=== PATIENT | female | born 1955 | race Caucasian/White ===

== ENCOUNTER → 2018-06-30 14:11 | Outpatient (CLI) | payer MEDICARE, SELFPAY ==
[2018-06-30 15:02] LABS: Absolute Lymphocyte Count 1.92 X10^3/ul (0.83-4.51); Absolute Neutrophil Count 4.9 X10^3/uL (2.0-7.7); Basophil# 0.02 X10^3/uL; Basophil% 0.3 % (0-1); Eosinophil# 0.24 X10^3/uL; Eosinophils% 3.2 % (0-5); Hematocrit 46.4 % (37-47); Hemoglobin 14.7 g/dl (12.0-15.0); Lymphocyte # 1.92 X10^3/ul (4.0); Lymphocyte % 25.6 % (19-41); Mean Corp Hgb Conc 31.7 g/gl (32-36); Mean Corpuscular Hgb 30.7 pg (27.0-32.0); Mean Corpuscular Volume 96.9 fL (81-99); Mean Platelet Vol. 11.2 fl (6.2-12.0); Monocyte# 0.44 X10^3/uL; Monocyte% 5.9 % (0-10); Neutrophil # 4.89 X10^3/uL (2.7-7.7); POSITIVE COUNT NO; POSITIVE DIFFERENTIAL NO; POSITIVE MORPHOLOGY NO; Platelet Count 157 K/mm3 (150-450); RBC Distribution Width CV 14.7 % (11.6-14.6); RBC Distribution Width SD 51.8 fl (35.1-43.9); Red Blood Count 4.79 M/mm3 (4.2-5.4); White Blood Count 7.5 K/mm3 (4.4-11.0)
[2018-06-30 15:29] LABS: Thyroid Stim Hormone (TSH) 0.49 uIU/mL (0.358-3.74)
[2018-06-30 15:31] LABS: Lithium < 0.20 mmol/L (0.60-1.20)
== END ==
PROVIDERS: Family Provider Family Medicine; PCP Family Medicine
DX: R53.83 Other fatigue (principal); Z79.899 Other long term (current) drug therapy
CPT/HCPCS: 36415; 80178; 84443; 85025

== ENCOUNTER 2018-11-03 09:54 | Inpatient (IN) | payer MEDICARE, SELFPAY ==
[2018-11-03] VITALS (20 sets, daily range): BP systolic 112–205; BP diastolic 63–98; PULSE 62–102; RESP 14–20; TEMP 35.8–37.4; O2SAT 91–100; BMI 37.5; BMI 37.3; BMI 37.4
[2018-11-03] MEDS: Ondansetron 4 MG/2 ML Vial IV (10:59)
[2018-11-03 11:07] LABS: Basophil# 0.05 X10^3/uL; Basophil% 0.3 % (0-1); Eosinophil# 0.02 X10^3/uL; Eosinophils% 0.1 % (0-5); Lymphocyte % 6.1 % (19-41); Mean Corp Hgb Conc 34.1 g/gl (32-36); Mean Corpuscular Hgb 32.7 pg (27.0-32.0); Mean Corpuscular Volume 95.8 fL (81-99); Mean Platelet Vol. 11.7 fl (6.2-12.0); Monocyte# 0.41 X10^3/uL; Monocyte% 2.5 % (0-10); Neutrophil # 14.97 X10^3/uL (2.7-7.7); Neutrophil % 90.8 % (47-70); Platelet Count 177 K/mm3 (150-450); RBC Distribution Width CV 13.7 % (11.6-14.6); RBC Distribution Width SD 46.1 fl (35.1-43.9); Red Blood Count 4.28 M/mm3 (4.2-5.4); White Blood Count 16.5 K/mm3 (4.4-11.0)
[2018-11-03 11:10] LABS: POSITIVE COUNT NO; POSITIVE DIFFERENTIAL NO; POSITIVE MORPHOLOGY NO
[2018-11-03 11:22] LABS: AST(SGOT) 26 U/L (15-37); Alanine Aminotransfer ALT/SGPT 22 U/L (13-56); Alkaline Phosphatase 305 U/L (45-117); Anion Gap 13 (5-15); BUN 19 mg/dL (7-18); BUN/Creat Ratio 11.3 RATIO (10-20); Calcium,Total 10.6 mg/dL (8.5-10.1); Chloride 90 mmol/L (98-107); Creatinine, Serum 1.68 mg/dL (0.55-1.02); EST Glomerular Filtration Rate 33 mL/min (>60); Est Glom Filt Rate - Afr Amer 40 mL/min (>60); Estimated Creatinine Clearance 27.46 ml/min; Globulin 3.9 g/dL (2.2-4.2); Glucose 795 mg/dL (74-106); Lipase 49 U/L (73-393); Potassium 3.9 mmol/L (3.5-5.1); Protein, Total 7.9 g/dL (6.4-8.2); Sodium Level 132 mmol/L (136-145)
--- NOTE | 2018-11-03 11:23 | ED.RN ---
NOTIFIED DR RAWLS [id number]
--- NOTE | 2018-11-03 11:24 | CT_ITS ---
STUDY: CT ABDOMEN AND PELVIS WITHOUT CONTRAST REASON FOR EXAM: Female, 62 years old. Abdominal pain and vomiting. Patient has had an appendectomy. RADIATION DOSAGE (If Supplied By Facility): CTDIvol = ( 18.65 ) mGy, DLP = ( 992.44 ) mGycm TECHNIQUE: Transaxial images were obtained from the dome of the diaphragm to the symphysis pubis without oral contrast, and without intravenous contrast. Sagittal and coronal images were reconstructed. Individualized dose optimization techniques were used for this CT. COMPARISON: Prior comparison studies are not available for review at this time. FINDINGS: There is groundglass attenuation at the right lung base possibly representing atelectasis. The visualized portions of the heart are within normal limits. Normal liver. The gallbladder is very distended measuring up to 9.7 cm in greatest dimension. This suggests possible gallbladder hydrops. No calcified gallstones are visualized. There is mild splenomegaly. There is diffuse atrophy of the pancreas. Normal bilateral adrenal glands. Normal right kidney. Normal left kidney. Normal visualized stomach. There is no evidence for dilated bowel, ascites or pneumoperitoneum. The small bowel has a grossly normal appearance. Stool is visible throughout the colon with scattered diverticula. There are surgical clips in the region of the appendix consistent with a prior appendectomy. There is multifocal atherosclerotic calcification of the abdominal aorta, without a demonstrated aneurysm. Normal inferior vena cava. Normal retroperitoneum. Normal urinary bladder. There is absence of the uterus consistent with a prior hysterectomy. Normal abdominal wall. Normal osseous structures. CT/Abdomen/Pelvis without Cont IMPRESSION: 1. Very distended gallbladder suggesting possible gallbladder hydrops. 2. Mild splenomegaly. Electronically Signed: Zoey Dick MD at 12:32 EST , Service support ,
[2018-11-03] MEDS: 0.9% Normal Saline 1,000 ML 999 ML IV ×2 (11:42→13:16)
--- NOTE | 2018-11-03 13:06 | ED.DCSUM_ITS ---
- ER Visit Summary Date of Service: 11/03/18 Chief Complaint: Nausea and vomiting History of Present Illness: The patient is a 62 F who presents with nausea and vomiting. Started 2 days ago. She denies any abdominal pain with this. No dysuria, hematuria or diarrhea or constipation. She tried Phenergan at home but it did not help. She denies fevers. She tells me that she is a type I diabetic and the last time she took her blood sugar it was 150. Physical Examination: Vital signs reviewed. HEENT exam unremarkable. Heart is regular rate and rhythm without murmurs. Lungs are clear to auscultation. Abdomen is soft and nontender. Extremities reveal no edema. Skin exam normal. Neurologic exam normal. Test Results: White count 16.5. Sodium 132, chloride 90. Glucose 795. Total bilirubin 2.20. Ketones are small in the blood Emergency Department Course and Treatment: Patient was given saline as well as Zofran. I placed her on an insulin drip due to diabetic ketoacidosis. CAT scan of the abdomen and pelvis does reveal gallbladder hydrops. Patient was discussed with the hospitalist for the admission. Treatment Plan: [] Disposition: Discharge Impression: DKA, gallbladder hydrops Critical care time 35 minutes This note was generated with [employer] dictation software. It may contain incorrect words, spelling, and punctuation that were not noted in review of the chart prior to signing ED Disposition - Plan for ED Patient: Chief Complaint: Nausea/Vomiting Referrals: Jatinder Rey DO [Primary Care Provider] -
--- NOTE | 2018-11-03 13:08 | HP.PCM_ITS ---
Problem List (1) Hyperosmolar non-ketotic state in patient with type 2 diabetes mellitus Status: Acute (2) DM2 (diabetes mellitus, type 2) Status: Chronic (3) BMI 37.0-37.9, adult Status: Chronic (4) Hydrops of gallbladder Status: Chronic History of Present Illness Date of Admission: 11/03/18 Chief Complaint: Intractable nausea vomiting The patient is a 62 year old F with past medical history 7 for diabetes mellitus type 2 on insulin who presents with intractable nausea vomiting. Patient symptoms have been ongoing for the past 4 days. She elected to present to the emergency department due to progressive nature of her symptoms. In the ED patient was found to have markedly elevated blood glucose greater than 700 with positive urine urine ketones but with normal anion gap. An assessment of hyperosmolar nonketotic state in a patient with diabetes mellitus was made patient admitted to the stepdown unit for subsequent management Past Medical History Past Medical History (Chronic Problems): Chronic Problems DM2 (diabetes mellitus, type 2) (Chronic) BMI 37.0-37.9, adult (Chronic) Hydrops of gallbladder (Chronic) Allergies amoxicillin [From Augmentin] Adverse Reaction (Verified 11/03/18 09:54) Vomiting clavulanic acid [From Augmentin] Adverse Reaction (Verified 11/03/18 09:54) Vomiting Home Medications: Ambulatory Orders Medication Instructions Recorded Insulin Aspart [Novolog Flexpen 30 - 40 units SC PRN PRN 01/01/17 ([facility])] ALPRAZolam [Xanax] 0.25 mg PO Q4H PRN PRN 11/03/18 Insulin Degludec [Tresiba 60 units SC BID 11/03/18 Flextouch U-200] [place] Carbonate [Eskalith Cr] 450 mg PO BID 11/03/18 proMETHazine tablet [Phenergan 25 mg PO Q6H PRN PRN 11/03/18 tablet] Smoking Status: Former smoker - *Family History Maternal History Items: Unknown Paternal History Items: - - Father of alcoholism Review of Systems Constitutional: Reports: Anorexia HEENT: Denies: Head Aches, Sinus Congestion, Sinus Drainage Cardiovascular: Denies: Chest Pain, Orthopnea, Palpitations, Paroxysmal Noc. Dyspnea Respiratory: Denies: Cough, Shortness of breath at rest, Shortness of breath upon exertion, Sputum production Gastrointestinal: Reports: Nausea, Vomiting Genitourinary: Denies: Dysuria, Frequency, Hematuria, Urgency Musculoskeletal: Denies: Joint Pain, Joint Tenderness Skin: Denies: Rash Neurological: Denies: Focal weakness, Numbness, Tingling Psychiatric: Denies: Homicidal Ideations, Suicidal Ideations Hematologic/ Lymphatic: Denies: Easy Bruising, Easy Bleeding VTE Information - Inpt Only VTE Present on Admission: No VTE Mechan Device Prophylaxis: Knee High MERCEDES Hose VTE Pharm Prophylaxis ordered?: Yes Patient Problems: Active and Suspected Problems Hyperosmolar non-ketotic state in patient with type 2 diabetes mellitus (Acute) Objective: GENERAL: cooperative HEENT: Atraumatic; moist oral mucosa EYES; Anicteric, Normal Conjunctiva NECK; supple, normal thyroid, no distended JVD. RESPIRATORY: Diminished to auscultation bilaterally, CARDIOVASCULAR: Regular S1 S2, no audible murmurs GI: soft, non-tender, normoactive bowel sounds, : No Renal angle tenderness; EXTREMITIES: No edema, no clubbing, no cyanosis. MUSCULOSKELETAL: No Joint Tenderness; no muscle waisting NEURO: Awake; no lateralizing signs. SKIN: No Rash PSYCH; Normal affect - Physical Exam Vital Signs Temp Pulse Resp BP Pulse Ox 96.4 F L 84 16 142/79 H 97 11/03/18 09:55 11/03/18 12:52 11/03/18 12:52 11/03/18 12:52 11/03/18 12:52 Oxygen Delivery Method Room Air Weight: 93 kg Body Mass Index (BMI) 37.5 Finger Stick Blood Glucose 288 Laboratory Tests Past 24 Hrs 11/03/18 11/03/18 11/03/18 10:50 10:50 11:34 WBC 16.5 H RBC 4.28 Hgb 14.0 Hct 41.0 MCV 95.8 MCH 32.7 H MCHC 34.1 RDW 13.7 RDW Differential 46.1 H Plt Count 177 MPV 11.7 Immature Gran % (Auto) 0.200 Neut % (Auto) 90.8 H Lymph % (Auto) 6.1 L [place] % (Auto) 2.5 Eos % (Auto) 0.1 Baso % (Auto) 0.3 Absolute Neuts (auto) 15.0 H Absolute Lymphs (auto) 1.00 Total Counted Not Reportable Sodium 132 L Potassium 3.9 Chloride 90 L Carbon Dioxide 29.0 Anion Gap 13 BUN 19 H Creatinine 1.68 H Estim Creat Clear Calc 27.46 Est GFR (MDRD) Af Amer 40 L Est GFR (MDRD) Non-Af 33 L BUN/Creatinine Ratio 11.3 Glucose 795 H* Calcium 10.6 H Total Bilirubin 2.20 H AST 26 ALT 22 Alkaline Phosphatase 305 H Total Protein 7.9 Albumin 4.0 Globulin 3.9 Albumin/Globulin Ratio 1.0 Lipase 49 L Acetone Level SMALL H Assessment/Plan All Active Problems Hyperosmolar non-ketotic state in patient with type 2 diabetes mellitus (Acute) Patient is a 62-year-old lady with history of diabetes mellitus type 2 1. Hyperosmolar ketotic state in a patient with diabetes mellitus type 2 she has been admitted to the stepdown unit being managed with aggressive IV fluid resuscitation insulin drip and correction of electrolyte 2. Diabetes mellitus type 2 uncontrolled presented with hyperosmolar nonketotic state 3. Acute kidney injury secondary to above on IV fluids with monitoring of electrolyte 4. Leukocytosis patient does not have any evidence of infection at this point 5. Very distended gallbladder suggesting possible gallbladder hydrops. Plan is to obtain surgical consultation Advance planning; did discuss with the patient regarding her advanced directives as well as CODE STATUS. Did explain the various modalities involved ( FULL CODE, DNR CCA, DNR CCA with no intubation, and DNR CC ) patient elected to remain full code. Order was placed. Time spent on discussion 17 minutes. Clinical Impression(s) from Imaging Studies Abdomen/Pelvis CT 11/03/18 11:24 IMPRESSION: 1. Very distended gallbladder suggesting possible gallbladder hydrops. 2. Mild splenomegaly. Electronically Signed: Zoey Dick MD at 12:32 EST , Service support , Code Visit Inpatient E&M: 61279 Init Hosp L3 Procedures: 62363 Advncd Care Plan 30 Min
[2018-11-03 13:31] LABS: Bedside Glucose > 500 mg/dL (70-110)
[2018-11-03 14:31] LABS: Bedside Glucose > 500 mg/dL (70-110)
[2018-11-03 14:53] LABS: AST(SGOT) 27 U/L (15-37); Alanine Aminotransfer ALT/SGPT 22 U/L (13-56); Alkaline Phosphatase 304 U/L (45-117); Bilirubin, Direct 0.83 mg/dL (0.00-0.30); Magnesium 2.3 mg/dL (1.6-2.6)
[2018-11-03 15:32] LABS: Anion Gap 12 (5-15); BUN 20 mg/dL (7-18); BUN/Creat Ratio 12.9 RATIO (10-20); Calcium,Total 9.9 mg/dL (8.5-10.1); Chloride 102 mmol/L (98-107); Creatinine, Serum 1.55 mg/dL (0.55-1.02); EST Glomerular Filtration Rate 36 mL/min (>60); Est Glom Filt Rate - Afr Amer 43 mL/min (>60); Estimated Creatinine Clearance 29.76 ml/min; Glucose 600 mg/dL (74-106); Potassium 3.5 mmol/L (3.5-5.1); Sodium Level 139 mmol/L (136-145)
[2018-11-03] MEDS: 0.9% Normal Saline 1,000 ML 500 ML IV (15:44)
[2018-11-03] MEDS: 0.9% Normal Saline 1,000 ML 250 ML IV ×2 (15:49→21:23)
--- NOTE | 2018-11-03 16:22 | PCM.CONS.GEN ---
Reason for Consult Date of Consultation: 11/03/18 History of Present Illness: The patient is a 62 year old F presented due to nausea and vomiting times 2 days and some right upper quadrant pain. In the ER patient had a CT abdomen pelvis did show a distended gallbladder. Her white blood count 16.5 along with a blood sugar of 795, total bili of 2.2 and elevated alk phos. Patient states last time she had any solid food was a couple days ago due to the nausea and vomiting. Patient is currently on insulin drip and her blood sugar as of 3 PM was 600, she is also getting some potassium in her and her fluids as well. Past Medical History Past Medical History (Chronic Problems): Chronic Problems DM2 (diabetes mellitus, type 2) (Chronic) BMI 37.0-37.9, adult (Chronic) Hydrops of gallbladder (Chronic) Allergies amoxicillin [From Augmentin] Adverse Reaction (Verified 11/03/18 09:54) Vomiting clavulanic acid [From Augmentin] Adverse Reaction (Verified 11/03/18 09:54) Vomiting Home Medications: Ambulatory Orders Medication Instructions Recorded Insulin Aspart [Novolog Flexpen 24 units SC TIDCM 01/01/17 ([facility])] ALPRAZolam [Xanax] 0.25 mg PO Q6H PRN PRN 11/03/18 Albuterol Inhaler [Ventolin Hfa] 1 puff INHALATION Q4H PRN 11/03/18 Furosemide [Lasix] 40 mg PO DAILY PRN 11/03/18 Insulin Degludec [Tresiba 60 units SC BID 11/03/18 Flextouch U-200] Levothyroxine [Synthroid] 100 mcg PO DAILY 11/03/18 [place] Carbonate [Eskalith Cr] 450 mg PO BID 11/03/18 Simvastatin [Zocor] 40 mg PO QHS 11/03/18 Tizanidine HCl [Zanaflex] 4 mg PO TID PRN 11/03/18 buPROPion XL [Wellbutrin Xl] 300 mg PO DAILY 11/03/18 proMETHazine tablet [Phenergan 25 mg PO Q6H PRN PRN 11/03/18 tablet] Surgical History: hysterectomy Psychiatric History: Bipolar 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 Smoking Status: Former smoker Tobacco Use: Cigarettes - *Family History Maternal History Items: Unknown Paternal History Items: - - Father of alcoholism Review of Systems Constitutional: Denies: Chills, Fever HEENT: Denies: Difficulty Swallowing Cardiovascular: Denies: Chest Pain Gastrointestinal: Reports: Abdominal Pain, Nausea, Vomiting Skin: Denies: Rash Neurological: Denies: Confusion Psychiatric: Reports: Depression - Patient has a history of bipolar which is controlled with lithium Patient Problems: Active and Suspected Problems Hyperosmolar non-ketotic state in patient with type 2 diabetes mellitus (Acute) - Physical Exam General: Alert, Oriented x3, Cooperative Cardiovascular: Regular rate Abdomen: Soft, Non-Distended, Obese, Tender - Right upper quadrant and epigastric, no peritoneal signs Extremities: No clubbing, No cyanosis, No edema Neurological: Cranial nerves II-XII grossly intact Psych/Mental Status: Normal Affect Vital Signs Temp Pulse Resp BP Pulse Ox 97.9 F 100 20 H 162/72 H 92 11/03/18 14:58 11/03/18 14:58 11/03/18 14:58 11/03/18 14:58 11/03/18 14:58 Oxygen Delivery Method Room Air Weight: 204 lb 5.896 oz Body Mass Index (BMI) 37.3 Finger Stick Blood Glucose 288 Laboratory Tests Past 24 Hrs 11/03/18 11/03/18 11/03/18 10:50 10:50 10:50 WBC 16.5 H RBC 4.28 Hgb 14.0 Hct 41.0 MCV 95.8 MCH 32.7 H MCHC 34.1 RDW 13.7 RDW Differential 46.1 H Plt Count 177 MPV 11.7 Immature Gran % (Auto) 0.200 Neut % (Auto) 90.8 H Lymph % (Auto) 6.1 L [place] % (Auto) 2.5 Eos % (Auto) 0.1 Baso % (Auto) 0.3 Absolute Neuts (auto) 15.0 H Absolute Lymphs (auto) 1.00 Total Counted Not Reportable Sodium 132 L Potassium 3.9 Chloride 90 L Carbon Dioxide 29.0 Anion Gap 13 BUN 19 H Creatinine 1.68 H Estim Creat Clear Calc 27.46 Est GFR (MDRD) Af Amer 40 L Est GFR (MDRD) Non-Af 33 L BUN/Creatinine Ratio 11.3 Glucose 795 H* Hemoglobin A1c Calcium 10.6 H Magnesium Total Bilirubin 2.20 H Cancelled Direct Bilirubin Cancelled AST 26 Cancelled ALT 22 Cancelled Alkaline Phosphatase 305 H Cancelled Troponin I Total Protein 7.9 Cancelled Albumin 4.0 Cancelled Globulin 3.9 Cancelled Albumin/Globulin Ratio 1.0 Lipase 49 L Acetone Level 11/03/18 11/03/18 11/03/18 10:50 10:55 11:34 WBC RBC Hgb Hct MCV MCH MCHC RDW RDW Differential Plt Count MPV Immature Gran % (Auto) Neut % (Auto) Lymph % (Auto) [place] % (Auto) Eos % (Auto) Baso % (Auto) Absolute Neuts (auto) Absolute Lymphs (auto) Total Counted Sodium Potassium Chloride Carbon Dioxide Anion Gap BUN Creatinine Estim Creat Clear Calc Est GFR (MDRD) Af Amer Est GFR (MDRD) Non-Af BUN/Creatinine Ratio Glucose Hemoglobin A1c 9.0 H Calcium Magnesium 2.3 Total Bilirubin 2.20 H Direct Bilirubin 0.83 H AST 27 ALT 22 Alkaline Phosphatase 304 H Troponin I Total Protein 8.0 Albumin 4.0 Globulin 4.0 Albumin/Globulin Ratio Lipase Acetone Level SMALL H 11/03/18 11/03/18 15:00 15:35 WBC RBC Hgb Hct MCV MCH MCHC RDW RDW Differential Plt Count MPV Immature Gran % (Auto) Neut % (Auto) Lymph % (Auto) [place] % (Auto) Eos % (Auto) Baso % (Auto) Absolute Neuts (auto) Absolute Lymphs (auto) Total Counted Sodium 139 Potassium 3.5 Chloride 102 Carbon Dioxide 25.0 Anion Gap 12 BUN 20 H Creatinine 1.55 H Estim Creat Clear Calc 29.76 Est GFR (MDRD) Af Amer 43 L Est GFR (MDRD) Non-Af 36 L BUN/Creatinine Ratio 12.9 Glucose 600 H* Hemoglobin A1c Calcium 9.9 Magnesium Total Bilirubin Direct Bilirubin AST ALT Alkaline Phosphatase Troponin I 0.018 Total Protein Albumin Globulin Albumin/Globulin Ratio Lipase Acetone Level POC Glucose 11/03/18 11/03/18 14:10 13:15 POC Glucose > 500 H* > 500 H* Assessment/Plan All Active Problems Hyperosmolar non-ketotic state in patient with type 2 diabetes mellitus (Acute) 62-year-old female with a distended gallbladder on CT, white blood cell count 16.5, blood sugars 600 currently (795), right upper quadrant pain, elevated total bili and alk phos 1. Discussed procedure laparoscopic cholecystectomy with cholangiograms, possible open along with the risk but not limited to bleeding, infection at incisions/abscess, injury to another organ (small bowel, bile ducts, etc.) may require transfer to tertiary care center, bile leak/retained gallstones may require an ERCP, partial cholecystectomy if there is too much inflammation to safely complete, hernia at incision sites, and anesthesia. Patient no further questions at this time. Patient's blood sugars may likely be due to infectious process due to the gallbladder as she does have nausea vomiting and right upper quadrant pain and also an elevated total bili and alk phos. Will start IV Cipro and Flagyl. 2. continue insulin gtt per primary Asha Shields M.D. Pager: [phone] [facility] [address] [place] [address], [address] [place] [id number] Office: [phone]
--- NOTE | 2018-11-03 16:27 | CON.PCM_ITS ---
Reason for Consult Date of Consultation: 11/03/18 History of Present Illness: The patient is a 62 year old F presented due to nausea and vomiting times 2 days and some right upper quadrant pain. In the ER patient had a CT abdomen pelvis did show a distended gallbladder. Her white blood count 16.5 along with a blood sugar of 795, total bili of 2.2 and elevated alk phos. Patient states last time she had any solid food was a couple days ago due to the nausea and vomiting. Patient is currently on insulin drip and her blood sugar as of 3 PM was 600, she is also getting some potassium in her and her fluids as well. Past Medical History Past Medical History (Chronic Problems): Chronic Problems DM2 (diabetes mellitus, type 2) (Chronic) BMI 37.0-37.9, adult (Chronic) Hydrops of gallbladder (Chronic) Allergies amoxicillin [From Augmentin] Adverse Reaction (Verified 11/03/18 09:54) Vomiting clavulanic acid [From Augmentin] Adverse Reaction (Verified 11/03/18 09:54) Vomiting Home Medications: Ambulatory Orders Medication Instructions Recorded Insulin Aspart [Novolog Flexpen 24 units SC TIDCM 01/01/17 ([facility])] ALPRAZolam [Xanax] 0.25 mg PO Q6H PRN PRN 11/03/18 Albuterol Inhaler [Ventolin Hfa] 1 puff INHALATION Q4H PRN 11/03/18 Furosemide [Lasix] 40 mg PO DAILY PRN 11/03/18 Insulin Degludec [Tresiba 60 units SC BID 11/03/18 Flextouch U-200] Levothyroxine [Synthroid] 100 mcg PO DAILY 11/03/18 [place] Carbonate [Eskalith Cr] 450 mg PO BID 11/03/18 Simvastatin [Zocor] 40 mg PO QHS 11/03/18 Tizanidine HCl [Zanaflex] 4 mg PO TID PRN 11/03/18 buPROPion XL [Wellbutrin Xl] 300 mg PO DAILY 11/03/18 proMETHazine tablet [Phenergan 25 mg PO Q6H PRN PRN 11/03/18 tablet] Surgical History: hysterectomy Psychiatric History: Bipolar 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 Smoking Status: Former smoker Tobacco Use: Cigarettes - *Family History Maternal History Items: Unknown Paternal History Items: - - Father of alcoholism Review of Systems Constitutional: Denies: Chills, Fever HEENT: Denies: Difficulty Swallowing Cardiovascular: Denies: Chest Pain Gastrointestinal: Reports: Abdominal Pain, Nausea, Vomiting Skin: Denies: Rash Neurological: Denies: Confusion Psychiatric: Reports: Depression - Patient has a history of bipolar which is controlled with lithium Patient Problems: Active and Suspected Problems Hyperosmolar non-ketotic state in patient with type 2 diabetes mellitus (Acute) - Physical Exam General: Alert, Oriented x3, Cooperative Cardiovascular: Regular rate Abdomen: Soft, Non-Distended, Obese, Tender - Right upper quadrant and epigastric, no peritoneal signs Extremities: No clubbing, No cyanosis, No edema Neurological: Cranial nerves II-XII grossly intact Psych/Mental Status: Normal Affect Vital Signs Temp Pulse Resp BP Pulse Ox 97.9 F 100 20 H 162/72 H 92 11/03/18 14:58 11/03/18 14:58 11/03/18 14:58 11/03/18 14:58 11/03/18 14:58 Oxygen Delivery Method Room Air Weight: 204 lb 5.896 oz Body Mass Index (BMI) 37.3 Finger Stick Blood Glucose 288 Laboratory Tests Past 24 Hrs 11/03/18 11/03/18 11/03/18 10:50 10:50 10:50 WBC 16.5 H RBC 4.28 Hgb 14.0 Hct 41.0 MCV 95.8 MCH 32.7 H MCHC 34.1 RDW 13.7 RDW Differential 46.1 H Plt Count 177 MPV 11.7 Immature Gran % (Auto) 0.200 Neut % (Auto) 90.8 H Lymph % (Auto) 6.1 L [place] % (Auto) 2.5 Eos % (Auto) 0.1 Baso % (Auto) 0.3 Absolute Neuts (auto) 15.0 H Absolute Lymphs (auto) 1.00 Total Counted Not Reportable Sodium 132 L Potassium 3.9 Chloride 90 L Carbon Dioxide 29.0 Anion Gap 13 BUN 19 H Creatinine 1.68 H Estim Creat Clear Calc 27.46 Est GFR (MDRD) Af Amer 40 L Est GFR (MDRD) Non-Af 33 L BUN/Creatinine Ratio 11.3 Glucose 795 H* Hemoglobin A1c Calcium 10.6 H Magnesium Total Bilirubin 2.20 H Cancelled Direct Bilirubin Cancelled AST 26 Cancelled ALT 22 Cancelled Alkaline Phosphatase 305 H Cancelled Troponin I Total Protein 7.9 Cancelled Albumin 4.0 Cancelled Globulin 3.9 Cancelled Albumin/Globulin Ratio 1.0 Lipase 49 L Acetone Level 11/03/18 11/03/18 11/03/18 10:50 10:55 11:34 WBC RBC Hgb Hct MCV MCH MCHC RDW RDW Differential Plt Count MPV Immature Gran % (Auto) Neut % (Auto) Lymph % (Auto) [place] % (Auto) Eos % (Auto) Baso % (Auto) Absolute Neuts (auto) Absolute Lymphs (auto) Total Counted Sodium Potassium Chloride Carbon Dioxide Anion Gap BUN Creatinine Estim Creat Clear Calc Est GFR (MDRD) Af Amer Est GFR (MDRD) Non-Af BUN/Creatinine Ratio Glucose Hemoglobin A1c 9.0 H Calcium Magnesium 2.3 Total Bilirubin 2.20 H Direct Bilirubin 0.83 H AST 27 ALT 22 Alkaline Phosphatase 304 H Troponin I Total Protein 8.0 Albumin 4.0 Globulin 4.0 Albumin/Globulin Ratio Lipase Acetone Level SMALL H 11/03/18 11/03/18 15:00 15:35 WBC RBC Hgb Hct MCV MCH MCHC RDW RDW Differential Plt Count MPV Immature Gran % (Auto) Neut % (Auto) Lymph % (Auto) [place] % (Auto) Eos % (Auto) Baso % (Auto) Absolute Neuts (auto) Absolute Lymphs (auto) Total Counted Sodium 139 Potassium 3.5 Chloride 102 Carbon Dioxide 25.0 Anion Gap 12 BUN 20 H Creatinine 1.55 H Estim Creat Clear Calc 29.76 Est GFR (MDRD) Af Amer 43 L Est GFR (MDRD) Non-Af 36 L BUN/Creatinine Ratio 12.9 Glucose 600 H* Hemoglobin A1c Calcium 9.9 Magnesium Total Bilirubin Direct Bilirubin AST ALT Alkaline Phosphatase Troponin I 0.018 Total Protein Albumin Globulin Albumin/Globulin Ratio Lipase Acetone Level POC Glucose 11/03/18 11/03/18 14:10 13:15 POC Glucose > 500 H* > 500 H* Assessment/Plan All Active Problems Hyperosmolar non-ketotic state in patient with type 2 diabetes mellitus (Acute) 62-year-old female with a distended gallbladder on CT, white blood cell count 16.5, blood sugars 600 currently (795), right upper quadrant pain, elevated total bili and alk phos 1. Discussed procedure laparoscopic cholecystectomy with cholangiograms, possible open along with the risk but not limited to bleeding, infection at incisions/abscess, injury to another organ (small bowel, bile ducts, etc.) may require transfer to tertiary care center, bile leak/retained gallstones may require an ERCP, partial cholecystectomy if there is too much inflammation to safely complete, hernia at incision sites, and anesthesia. Patient no further questions at this time. Patient's blood sugars may likely be due to infectious process due to the gallbladder as she does have nausea vomiting and right upper quadrant pain and also an elevated total bili and alk phos. Will start IV Cipro and Flagyl. 2. continue insulin gtt per primary Asha Shields M.D. Pager: [phone] [facility] [address] [place] [address], [address] [place] [id number] Office: [phone]
--- NOTE | 2018-11-03 16:35 | GALL_PTH ---
PATIENT: JUANCARLOS JOHN LOC: [facility] U#:[id number] AGE/SX: 63/F ROOM: [facility] RE11/03/[address]: Dr. Juanito Phillip MD : [id number] BED: 1 DIS: 11/07/2018 SPEC #: [id number] RECD: 11/04/18 15:05 STATUS: DENISHA REQ #: [id number] OLINDA: 11/03/18 16:[address]: Asha Shields DEPT: SURGICAL PATHOLOGY RECD BY: Michelet Minor ENTERED: 11/05/18 10:24 SP TYPE: GALLBLADDE OTHR DR: DO Dr. Juanito Marin MD Dr. Tamera Robotham, MD Tissues: Gallbladder, NOS Procedures: Surgery Specimen Level III Comments: @ Ordering doctor for SUIII edited from to @ by RGOOD at 11/05/18 1507 @ Submitting doctor edited from to @ by RGOOD at 11/05/18 1507 HEADER OPERATION: Laparoscopic cholecystectomy with IOC PRE-OP DIAGNOSIS: Hydrops of gallbladder TISSUE SUBMITTED: Gallbladder MICROSCOPIC DIAGNOSIS Gallbladder: Acute and chronic cholecystitis and focal cholesterolosis. No stones are identified in the container or in the gallbladder. SJ:stacia 11/06/18 MICROSCOPIC DESCRIPTION Slides are reviewed. GROSS DESCRIPTION Received is one container labeled with the patient's name and designated gallbladder. The specimen consists of a gallbladder measuring 9.2 x 5.5 x 2 cm. The external surface is smooth and glistening. Focally, it is granular, hemorrhagic and contains cautery artifact. The lumen of the gallbladder contains small amount of greenish mucoid bile. No calculi are present in the specimen container or the lumen of the gallbladder. The mucosa is bile-stained and without any mass lesions. The gallbladder wall averages 0.2 cm in thickness and is free of mass lesions. Complex Manager sections of the gallbladder and the cystic duct are submitted in one cassette. / AM:stacia 11/05/18 TC:4 CPT: 89500
[2018-11-03 16:46] LABS: Bedside Glucose 450 mg/dL (70-110)
[2018-11-03 16:46] LABS: Bedside Glucose > 500 mg/dL (70-110)
--- NOTE | 2018-11-03 16:51 | RAD_ITS ---
CLINICAL HISTORY: Female, 62 years old. Gallbladder disease PROCEDURE: CHOLANGIOGRAM - intraoperative CONSENT: SEDATION: FLUOROSCOPY TIME (if supplied): ( ) minutes/seconds Placement of the catheter and the procedure were performed by: Surgeon Fluoroscopy was provided by soil technologist, who was present in the room time of the procedure. TECHNIQUE: (4 fluoroscopic guided images were submitted during intraoperative cholangiogram. FINDINGS: Intraoperative cholangiogram was performed. For more complete information recommend correlation with surgical procedure nodes RAD/Cholangiogram/ O R,Initial IMPRESSION: Fluoroscopic guided intraoperative cholangiogram Electronically Signed: Simone Foss MD at 23:56 EST , Service support ,
[2018-11-03 17:19] LABS: Bacteria 0 SEEN /hpf (None Seen); Mucous, Urine 0 SEEN /hpf (<or=2+); Red Blood Cells-Urine 0 SEEN /hpf (0-5)
[2018-11-03 17:24] LABS: Color, Urine Yellow (Yellow); Glucose, Dipstick 1000 mg/dl (Normal); Ketone-Dipstick 15 mg/dl (Negative); Leukocyte Esterase-Dipstick Negative /ul (Negative); Nitrite-Dipstick Negative (Negative); Occult Blood-Urine 10 /ul (Negative); Protein-Dipstick Negative (Negative); Urine Bilirubin Dipstick Negative (Negative); Urine Clarity Sl. Cloudy (Clear); Urine Urobilinogen 1 mg/dl (Normal); Urine pH 6.5 (5.0 - 8.0)
--- NOTE | 2018-11-03 17:32 | EKG12_ITS ---
Test Reason : Blood Pressure : / mmHG Vent. Rate : 094 BPM Atrial Rate : 094 BPM P-R Int : 148 ms QRS Dur : 076 ms QT Int : 430 ms P-R-T Axes : 031 036 061 degrees QTc Int : 537 ms Normal sinus rhythm Nonspecific T wave abnormality Prolonged QT Abnormal ECG Confirmed by HELDER BOGGS, RITESH ([id number]), news videotape editor SUMAN GILILLAND ([id number]) on 11/07/2018 2:27:56 PM Referred By: Juanito Phillip Confirmed By:RITESH PENDLETON MD
[2018-11-03 17:33] LABS: Squamous Epithelial Cells - UA 0-5 SEEN /hpf (5-10); White Blood Cells 0-5 SEEN /hpf (0-5)
[2018-11-03] MEDS: Ciprofloxacin 400 MG/200 ML BAG 200 MG IV ×2 (17:52→22:38)
[2018-11-03] MEDS: Bupivacaine Mpf 0.5% 30 ML VIAL (19:25)
--- NOTE | 2018-11-03 19:29 | PCM.OPRPT ---
Report of Operation Date of Procedure: 11/03/18 Pre-Operative Diagnosis: Hydrops of the gallbladder Post-Operative Diagnosis: Acute cholecystitis, hydrops of the gallbladder Surgery/Procedure Performed:: Laparoscopic cholecystectomy with cholangiograms president and ceo: Roslyn Purvis Type of Anesthesia:: General/Supplemental Anesthesiologist: Dharmesh Perry Special Medications: Cipro 400 mg IV x1, Flagyl 500 mg IV x1 Specimen's removed: Gallbladder Estimated Blood Loss (mL): 40 cc Fluids Replaced: 500 cc Description of Procedure: Indications this is a 62 year-old female who developed abdominal pain/nausea/vomiting and on workup was found to have a very distended gallbladder, right upper quadrant pain, leukocytosis of 16.5, total bilirubin of 2.2 and elevated alk phos. Laparoscopic cholecystectomy with cholangiograms was elected. Description procedure: The patient was placed on operating table in supine position. General Anesthesia was induced. A timeout was completed verifying correct patient, procedure, site, position, social, and special equipment prior to beginning procedure. An orogastric tube was placed. The abdomen was prepped and draped in usual sterile fashion. An incision was made in the natural skin line above the umbilicus. The fascia was elevated and incised. The peritoneum was elevated and incised. Entry into the peritoneum was confirmed visually and no bowel was noted in the vicinity of the incision. Steele trocar was placed. The abdomen was insufflated with carbon dioxide to a pressure of 12-15 mmHg. Patient tolerated insufflation well. The laparoscope was then inserted and abdomen inspected. No injuries from initial trocar placement were noted. Additional trochars were then inserted in the following locations 5 mm trocar in the epigastrium and 2 more 5 mm trochars along the right costal margin. The abdomen was inspected no abnormalities were found. The table is placed in reverse Trendelenburg position with the right side up. The gallbladder is noted to be very distended, needle decompression was done to allow grasping of the dome of the gallbladder. The adhesions between the gallbladder and omentum were lysed sharply. The dome of the gallbladder was grasped with atraumatic grasper passed through the lateral port and retracted over the dome of the liver. Infundibulum was then grasped with atraumatic grasper through the midclavicular port and retracted to the right lower quadrant. This maneuver exposed Calot's triangle. The peritoneum overlying the gallbladder infundibulum was then incised and cystic duct and artery identified and circumferentially dissected. Best catheter was used for cholangiograms. Cholangiograms showed good filling into the duodenum as well as good filling of the right left bile ducts. The cystic duct and artery were then doubly clipped and divided close to the gallbladder. The gallbladder then dissected from its peritoneal attachments by electrocautery. Hemostasis was checked and the gallbladder and contained stones were removed using the endoscopic retrieval bag through the umbilical port. The gallbladder is passed off table as specimen. The gallbladder fossa was copiously irrigated with saline and hemostasis obtained. There is no evidence of bleeding from the gallbladder fossa or cystic artery leakage of bile from the cystic duct stump. Secondary trochars removed under direct vision. No bleeding was noted the trocar sites. The laparoscope was withdrawn and umbilical trocar removed. The abdomen was allowed to collapse. The fascia of the 12 mm trocar was closed with a [id number] 0 Vicryl suture. The skin was closed with sutures of 4-0 Monocryl and Steri-Strips. The orogastric tube was removed and the patient was extubated. The patient tolerated procedure well and was taken to the postanesthesia care unit in stable condition. - Complications none
--- NOTE | 2018-11-03 19:33 | OP.PCM_ITS ---
Report of Operation Date of Procedure: 11/03/18 Pre-Operative Diagnosis: Hydrops of the gallbladder Post-Operative Diagnosis: Acute cholecystitis, hydrops of the gallbladder Surgery/Procedure Performed:: Laparoscopic cholecystectomy with cholangiograms trash hauler: Roslyn Purvis Type of Anesthesia:: General/Supplemental Anesthesiologist: Dharmesh Perry Special Medications: Cipro 400 mg IV x1, Flagyl 500 mg IV x1 Specimen's removed: Gallbladder Estimated Blood Loss (mL): 40 cc Fluids Replaced: 500 cc Description of Procedure: Indications this is a 62 year-old female who developed abdominal pain/nausea/vomiting and on workup was found to have a very distended gallb ladder, right upper quadrant pain, leukocytosis of 16.5, total bilirubin of 2.2 and elevated alk phos. Laparoscopic cholecystectomy with cholangiograms was elected. Description procedure: The patient was placed on operating table in supine position. General Anesthesia was induced. A timeout was completed verifying correct patient, procedure, site, position, social, and special equipment prior to beginning procedure. An orogastric tube was placed. The abdomen was prepped and draped in usual sterile fashion. An incision was made in the natural skin line above the umbilicus. The fascia was elevated and incised. The peritoneum was elevated and incised. Entry into the peritoneum was confirmed visually and no bowel was noted in the vicinity of the incision. Steele trocar was placed. The abdomen was insufflated with carbon dioxide to a pressure of 12-15 mmHg. Patient tolerated insufflation well. The laparoscope was then inserted and abdomen inspected. No injuries from initial trocar placement were noted. Additional trochars were then inserted in the following locations 5 mm trocar in the epigastrium and 2 more 5 mm trochars along the right costal margin. The abdomen was inspected no abnormalities were found. The table is placed in reverse Trendelenburg position with the right side up. The gallbladder is noted to be very distended, needle decompression was done to allow grasping of the dome of the gallbladder. The adhesions between the gallbladder and omentum were lysed sharply. The dome of the gallbladder was grasped with atraumatic grasper passed through the lateral port and retracted over the dome of the liver. Infundibulum was then grasped with atraumatic grasper through the midclavicular port and retracted to the right lower quadrant. This maneuver exposed Calot's triangle. The peritoneum overlying the gallbladder infundibulum was then incised and cystic duct and artery identified and circumferentially dissected. Best catheter was used for cholangiograms. Cholangiograms showed good filling into the duodenum as well as good filling of the right left bile ducts. The cystic duct and artery were then doubly clipped and divided close to the gallbladder. The gallbladder then dissected from its peritoneal attachments by electrocautery. Hemostasis was checked and the gallbladder and contained stones were removed using the endoscopic retrieval bag through the umbilical port. The gallbladder is passed off table as specimen. The gallbladder fossa was copiously irrigated with saline and hemostasis obtained. There is no evidence of bleeding from the gallbladder fossa or cystic artery leakage of bile from the cystic duct stump. Secondary trochars removed under direct vision. No bleeding was noted the trocar sites. The laparoscope was withdrawn and umbilical trocar removed. The abdomen was allowed to collapse. The fascia of the 12 mm trocar was closed with a [id number] 0 Vicryl suture. The skin was closed with sutures of 4-0 Monocryl and Steri-Strips. The orogastric tube was removed and the patient was extubated. The patient tolerated procedure well and was taken to the postanesthesia care unit in stable condition. - Complications none
[2018-11-03 19:51] LABS: Bedside Glucose 368 mg/dL (70-110)
[2018-11-03 20:06] LABS: Bedside Glucose 337 mg/dL (70-110)
[2018-11-03 20:27] LABS: Anion Gap 8 (5-15); BUN 19 mg/dL (7-18); BUN/Creat Ratio 13.7 RATIO (10-20); Calcium,Total 9.1 mg/dL (8.5-10.1); Chloride 108 mmol/L (98-107); Creatinine, Serum 1.39 mg/dL (0.55-1.02); EST Glomerular Filtration Rate 41 mL/min (>60); Est Glom Filt Rate - Afr Amer 49 mL/min (>60); Estimated Creatinine Clearance 33.19 ml/min; Glucose 332 mg/dL (74-106); Potassium 3.3 mmol/L (3.5-5.1); Sodium Level 142 mmol/L (136-145)
[2018-11-03] MEDS: oxyCODONE 5 MG Tablet PO (21:23)
[2018-11-03 21:41] LABS: Bedside Glucose 223 mg/dL (70-110)
[2018-11-03 21:56] LABS: Bedside Glucose 198 mg/dL (70-110)
--- NOTE | 2018-11-03 22:47 | NURSING ---
40 total units of humalog passed with insulin gtt
[2018-11-03 22:51] LABS: Bedside Glucose 182 mg/dL (70-110)
[2018-11-03 23:12] LABS: Anion Gap 5 (5-15); BUN 18 mg/dL (7-18); BUN/Creat Ratio 15.5 RATIO (10-20); Calcium,Total 9.3 mg/dL (8.5-10.1); Chloride 109 mmol/L (98-107); Creatinine, Serum 1.16 mg/dL (0.55-1.02); EST Glomerular Filtration Rate 50 mL/min (>60); Est Glom Filt Rate - Afr Amer 61 mL/min (>60); Estimated Creatinine Clearance 39.77 ml/min; Glucose 222 mg/dL (74-106); Potassium 3.5 mmol/L (3.5-5.1); Sodium Level 144 mmol/L (136-145)
[2018-11-04] VITALS (10 sets, daily range): BP systolic 141–160; BP diastolic 59–78; PULSE 66–85; RESP 16–19; TEMP 36.6–37.2; O2SAT 93–95
[2018-11-04] MEDS: oxyCODONE 5 MG Tablet PO ×2 (01:54→06:04)
[2018-11-04 06:46] LABS: Bedside Glucose 388 mg/dL (70-110)
[2018-11-04 07:03] LABS: Absolute Lymphocyte Count 2.28 X10^3/ul (0.83-4.51); Absolute Neutrophil Count 15.1 X10^3/uL (2.0-7.7); Basophil# 0.02 X10^3/uL; Basophil% 0.1 % (0-1); Eosinophil# 0.18 X10^3/uL; Hematocrit 36.8 % (37-47); Hemoglobin 12.2 g/dl (12.0-15.0); Lymphocyte # 2.28 X10^3/ul (4.0); Lymphocyte % 12.3 % (19-41); Mean Corp Hgb Conc 33.2 g/gl (32-36); Mean Corpuscular Hgb 32.3 pg (27.0-32.0); Mean Corpuscular Volume 97.4 fL (81-99); Mean Platelet Vol. 11.2 fl (6.2-12.0); Monocyte# 0.95 X10^3/uL; Monocyte% 5.1 % (0-10); Neutrophil # 15.07 X10^3/uL (2.7-7.7); Neutrophil % 81.2 % (47-70); Platelet Count 135 K/mm3 (150-450); RBC Distribution Width CV 14.5 % (11.6-14.6); RBC Distribution Width SD 50.8 fl (35.1-43.9); Red Blood Count 3.78 M/mm3 (4.2-5.4); White Blood Count 18.6 K/mm3 (4.4-11.0)
[2018-11-04 07:08] LABS: POSITIVE COUNT NO; POSITIVE DIFFERENTIAL NO; POSITIVE MORPHOLOGY NO
[2018-11-04 07:24] LABS: Anion Gap 10 (5-15); BUN 17 mg/dL (7-18); BUN/Creat Ratio 14.3 RATIO (10-20); Calcium,Total 8.8 mg/dL (8.5-10.1); Chloride 102 mmol/L (98-107); Creatinine, Serum 1.19 mg/dL (0.55-1.02); EST Glomerular Filtration Rate 49 mL/min (>60); Est Glom Filt Rate - Afr Amer 59 mL/min (>60); Estimated Creatinine Clearance 38.77 ml/min; Glucose 384 mg/dL (74-106); Potassium 3.5 mmol/L (3.5-5.1); Sodium Level 135 mmol/L (136-145)
--- NOTE | 2018-11-04 07:31 | PCM.PN.SRG ---
Patient Problems: Active and Suspected Problems Hyperosmolar non-ketotic state in patient with type 2 diabetes mellitus (Acute) Subjective: Patient was evaluated resting comfortably in bed. She denies pain/discomfort except with coughing. She denies nausea, vomiting, fever. She has not been out of bed. She is tolerating clear liquids. - Physical Exam General: Alert, Oriented x3, Cooperative Lungs: Clear to auscultation, Normal air movement Cardiovascular: Regular rate, No murmurs Abdomen: Soft, Hypoactive Bowel Sounds, Distended, Obese, Tender - RUQ- minimal, - - Incisions c/d/i. No erythema or infection noted Vital Signs Temp Pulse Resp BP Pulse Ox 98.3 F 81 16 146/59 H 93 11/04/18 03:57 11/04/18 03:57 11/04/18 03:57 11/04/18 03:57 11/04/18 03:57 Oxygen Flow Rate (L/min) 2 Oxygen Delivery Method Nasal Cannula Weight: 204 lb 5.896 oz Body Mass Index (BMI) 37.3 Finger Stick Blood Glucose 198 Intake and Output for Last 24 Hours 11/02/18 11/03/18 11/04/18 23:59 23:59 23:59 Intake Total 2990 / 2990 750 / 750 Balance 2990 / 2990 750 / 750 Laboratory Tests Past 24 Hrs 11/03/18 11/03/18 11/03/18 10:50 10:50 10:50 WBC 16.5 H RBC 4.28 Hgb 14.0 Hct 41.0 MCV 95.8 MCH 32.7 H MCHC 34.1 RDW 13.7 RDW Differential 46.1 H Plt Count 177 MPV 11.7 Immature Gran % (Auto) 0.200 Neut % (Auto) 90.8 H Lymph % (Auto) 6.1 L [place] % (Auto) 2.5 Eos % (Auto) 0.1 Baso % (Auto) 0.3 Absolute Neuts (auto) 15.0 H Absolute Lymphs (auto) 1.00 Total Counted Not Reportable Sodium 132 L Potassium 3.9 Chloride 90 L Carbon Dioxide 29.0 Anion Gap 13 BUN 19 H Creatinine 1.68 H Estim Creat Clear Calc 27.46 Est GFR (MDRD) Af Amer 40 L Est GFR (MDRD) Non-Af 33 L BUN/Creatinine Ratio 11.3 Glucose 795 H* Hemoglobin A1c Calcium 10.6 H Magnesium Total Bilirubin 2.20 H Cancelled Direct Bilirubin Cancelled AST 26 Cancelled ALT 22 Cancelled Alkaline Phosphatase 305 H Cancelled Troponin I Total Protein 7.9 Cancelled Albumin 4.0 Cancelled Globulin 3.9 Cancelled Albumin/Globulin Ratio 1.0 Lipase 49 L Urine Color Urine Clarity Urine pH Ur Specific [place] Urine Protein Urine Glucose (UA) Urine Ketones Urine Occult Blood Urine Nitrite Urine Bilirubin Urine Urobilinogen Ur Leukocyte Esterase Urine RBC Urine WBC Ur Squamous Epith Cells Urine Bacteria Urine Mucus Acetone Level 11/03/18 11/03/18 11/03/18 10:50 10:55 11:34 WBC RBC Hgb Hct MCV MCH MCHC RDW RDW Differential Plt Count MPV Immature Gran % (Auto) Neut % (Auto) Lymph % (Auto) [place] % (Auto) Eos % (Auto) Baso % (Auto) Absolute Neuts (auto) Absolute Lymphs (auto) Total Counted Sodium Potassium Chloride Carbon Dioxide Anion Gap BUN Creatinine Estim Creat Clear Calc Est GFR (MDRD) Af Amer Est GFR (MDRD) Non-Af BUN/Creatinine Ratio Glucose Hemoglobin A1c 9.0 H Calcium Magnesium 2.3 Total Bilirubin 2.20 H Direct Bilirubin 0.83 H AST 27 ALT 22 Alkaline Phosphatase 304 H Troponin I Total Protein 8.0 Albumin 4.0 Globulin 4.0 Albumin/Globulin Ratio Lipase Urine Color Urine Clarity Urine pH Ur Specific [place] Urine Protein Urine Glucose (UA) Urine Ketones Urine Occult Blood Urine Nitrite Urine Bilirubin Urine Urobilinogen Ur Leukocyte Esterase Urine RBC Urine WBC Ur Squamous Epith Cells Urine Bacteria Urine Mucus Acetone Level SMALL H 11/03/18 11/03/18 11/03/18 15:00 15:35 17:00 WBC RBC Hgb Hct MCV MCH MCHC RDW RDW Differential Plt Count MPV Immature Gran % (Auto) Neut % (Auto) Lymph % (Auto) [place] % (Auto) Eos % (Auto) Baso % (Auto) Absolute Neuts (auto) Absolute Lymphs (auto) Total Counted Sodium 139 Potassium 3.5 Chloride 102 Carbon Dioxide 25.0 Anion Gap 12 BUN 20 H Creatinine 1.55 H Estim Creat Clear Calc 29.76 Est GFR (MDRD) Af Amer 43 L Est GFR (MDRD) Non-Af 36 L BUN/Creatinine Ratio 12.9 Glucose 600 H* Hemoglobin A1c Calcium 9.9 Magnesium Total Bilirubin Direct Bilirubin AST ALT Alkaline Phosphatase Troponin I 0.018 Total Protein Albumin Globulin Albumin/Globulin Ratio Lipase Urine Color Yellow Urine Clarity Sl. Cloudy Urine pH 6.5 Ur Specific [place] 1.010 Urine Protein Negative Urine Glucose (UA) 1000 H Urine Ketones 15 H Urine Occult Blood 10 H Urine Nitrite Negative Urine Bilirubin Negative Urine Urobilinogen 1 H Ur Leukocyte Esterase Negative Urine RBC 0 SEEN Urine WBC 0-5 SEEN Ur Squamous Epith Cells 0-5 SEEN Urine Bacteria 0 SEEN Urine Mucus 0 SEEN Acetone Level 11/03/18 11/03/18 11/03/18 19:55 22:47 22:47 WBC RBC Hgb Hct MCV MCH MCHC RDW RDW Differential Plt Count MPV Immature Gran % (Auto) Neut % (Auto) Lymph % (Auto) [place] % (Auto) Eos % (Auto) Baso % (Auto) Absolute Neuts (auto) Absolute Lymphs (auto) Total Counted Sodium 142 144 Potassium 3.3 L 3.5 Chloride 108 H 109 H Carbon Dioxide 26.0 30.0 Anion Gap 8 5 BUN 19 H 18 Creatinine 1.39 H 1.16 H Estim Creat Clear Calc 33.19 39.77 Est GFR (MDRD) Af Amer 49 L 61 Est GFR (MDRD) Non-Af 41 L 50 L BUN/Creatinine Ratio 13.7 15.5 Glucose 332 H 222 H Hemoglobin A1c Calcium 9.1 9.3 Magnesium Total Bilirubin Direct Bilirubin AST ALT Alkaline Phosphatase Troponin I 0.021 0.030 Total Protein Albumin Globulin Albumin/Globulin Ratio Lipase Urine Color Urine Clarity Urine pH Ur Specific [place] Urine Protein Urine Glucose (UA) Urine Ketones Urine Occult Blood Urine Nitrite Urine Bilirubin Urine Urobilinogen Ur Leukocyte Esterase Urine RBC Urine WBC Ur Squamous Epith Cells Urine Bacteria Urine Mucus Acetone Level 11/04/18 11/04/18 11/04/18 06:30 06:30 06:30 WBC 18.6 H RBC 3.78 L Hgb 12.2 Hct 36.8 L MCV 97.4 MCH 32.3 H MCHC 33.2 RDW 14.5 RDW Differential 50.8 H Plt Count 135 L MPV 11.2 Immature Gran % (Auto) 0.300 Neut % (Auto) 81.2 H Lymph % (Auto) 12.3 L [place] % (Auto) 5.1 Eos % (Auto) 1.0 Baso % (Auto) 0.1 Absolute Neuts (auto) 15.1 H Absolute Lymphs (auto) 2.28 Total Counted Not Reportable Sodium 135 L Potassium 3.5 Chloride 102 Carbon Dioxide 23.0 Anion Gap 10 BUN 17 Creatinine 1.19 H Estim Creat Clear Calc 38.77 Est GFR (MDRD) Af Amer 59 L Est GFR (MDRD) Non-Af 49 L BUN/Creatinine Ratio 14.3 Glucose 384 H Hemoglobin A1c Calcium 8.8 Magnesium Total Bilirubin Pending Direct Bilirubin Pending AST Pending ALT Pending Alkaline Phosphatase Pending Troponin I Total Protein Pending Albumin Pending Globulin Albumin/Globulin Ratio Lipase Urine Color Urine Clarity Urine pH Ur Specific [place] Urine Protein Urine Glucose (UA) Urine Ketones Urine Occult Blood Urine Nitrite Urine Bilirubin Urine Urobilinogen Ur Leukocyte Esterase Urine RBC Urine WBC Ur Squamous Epith Cells Urine Bacteria Urine Mucus Acetone Level POC Glucose 11/04/18 11/03/18 11/03/18 06:41 22:38 21:50 POC Glucose 388 H 182 H 198 H 11/03/18 11/03/18 11/03/18 20:50 19:54 18:35 POC Glucose 223 H 337 H 368 H 11/03/18 11/03/18 11/03/18 16:12 15:21 14:10 POC Glucose 450 H > 500 H* > 500 H* 11/03/18 13:15 POC Glucose > 500 H* Medical Necessity - Tobacco Use Smoking Status: Former smoker Tobacco Use: Cigarettes Assessment/Plan All Active Problems Hyperosmolar non-ketotic state in patient with type 2 diabetes mellitus (Acute) I am following this patient in conjunction with Dr. Shields Impression: S/p lap harry Give single dose of cipro and flagyl again this morning Recommend I.S. and patient up an out of bed, in the chair and walking the unit. We will continue to monitor this patient Hopeful discharge tomorrow Code Visit Inpatient E&M: 26142 Subs Hosp L1 - POST-OP/ NO CHARGE
[2018-11-04 07:37] LABS: AST(SGOT) 40 U/L (15-37); Alanine Aminotransfer ALT/SGPT 21 U/L (13-56); Albumin, Serum 2.7 g/dL (3.2-5.0); Alkaline Phosphatase 199 U/L (45-117); Bilirubin, Direct 0.27 mg/dL (0.00-0.30); Globulin 3.5 g/dL (2.2-4.2); Protein, Total 6.2 g/dL (6.4-8.2)
[2018-11-04] MEDS: Insulin Lispro 100 UNIT/ML INSULN.PEN SC ×3 (08:05→17:26)
[2018-11-04] MEDS: Ciprofloxacin 400 MG/200 ML BAG 200 MG IV (10:48)
[2018-11-04 11:01] LABS: Bedside Glucose 445 mg/dL (70-110)
[2018-11-04] MEDS: proMETHazine 25 MG Tablet PO ×2 (12:04→18:31)
--- NOTE | 2018-11-04 13:34 | PCM.PROGNOTE ---
<Ranjit Perry - Last Filed: 11/04/18 13:38> Patient Problems: Active and Suspected Problems Hyperosmolar non-ketotic state in patient with type 2 diabetes mellitus (Acute) Subjective: Pt resting comfortably in bed NAD. Mild RUQ pain. No fever/chills. Some nausea this AM, no vomiting. No flatus or BM. She had so far only had soda, jello. - Physical Exam General: Alert, Oriented x3, Cooperative HEENT: Atraumatic, PERRLA, EOMI, Normocephalic Neck: Supple, No JVD, Negative Carotid Bruits Lungs: Clear to auscultation, Normal air movement Cardiovascular: Regular rate, No murmurs Abdomen: Bowel Sounds Present, Soft, Non Tender Extremities: No edema, Capillary Refill Less than 3 Seconds Skin: No rashes, No breakdown Musculoskeletal: No Tenderness to Palpation of Joints or Extremities Neurological: Cranial nerves II-XII grossly intact Psych/Mental Status: Normal Affect, Appropriate, Alert and oriented to time, place, person, mood and affect Vital Signs Temp Pulse Resp BP Pulse Ox 97.8 F 68 19 H 141/78 H 93 11/04/18 09:50 11/04/18 11:05 11/04/18 09:50 11/04/18 09:50 11/04/18 09:50 Oxygen Flow Rate (L/min) 2 Oxygen Delivery Method Room Air Weight: 204 lb 5.896 oz Body Mass Index (BMI) 37.3 Finger Stick Blood Glucose 198 Intake and Output for Last 24 Hours 11/02/18 11/03/18 11/04/18 23:59 23:59 23:59 Intake Total 2990 / 2990 1230 / 1230 Balance 2990 / 2990 1230 / 1230 Laboratory Tests Past 24 Hrs 11/03/18 11/03/18 11/03/18 10:50 10:50 10:55 WBC RBC Hgb Hct MCV MCH MCHC RDW RDW Differential Plt Count MPV Immature Gran % (Auto) Neut % (Auto) Lymph % (Auto) Tate % (Auto) Eos % (Auto) Baso % (Auto) Absolute Neuts (auto) Absolute Lymphs (auto) Total Counted Sodium Potassium Chloride Carbon Dioxide Anion Gap BUN Creatinine Estim Creat Clear Calc Est GFR (MDRD) Af Amer Est GFR (MDRD) Non-Af BUN/Creatinine Ratio Glucose Hemoglobin A1c 9.0 H Calcium Magnesium 2.3 Total Bilirubin Cancelled 2.20 H Direct Bilirubin Cancelled 0.83 H AST Cancelled 27 ALT Cancelled 22 Alkaline Phosphatase Cancelled 304 H Troponin I Total Protein Cancelled 8.0 Albumin Cancelled 4.0 Globulin Cancelled 4.0 Urine Color Urine Clarity Urine pH Ur Specific [place] Urine Protein Urine Glucose (UA) Urine Ketones Urine Occult Blood Urine Nitrite Urine Bilirubin Urine Urobilinogen Ur Leukocyte Esterase Urine RBC Urine WBC Ur Squamous Epith Cells Urine Bacteria Urine Mucus 11/03/18 11/03/18 11/03/18 15:00 15:35 17:00 WBC RBC Hgb Hct MCV MCH MCHC RDW RDW Differential Plt Count MPV Immature Gran % (Auto) Neut % (Auto) Lymph % (Auto) Tate % (Auto) Eos % (Auto) Baso % (Auto) Absolute Neuts (auto) Absolute Lymphs (auto) Total Counted Sodium 139 Potassium 3.5 Chloride 102 Carbon Dioxide 25.0 Anion Gap 12 BUN 20 H Creatinine 1.55 H Estim Creat Clear Calc 29.76 Est GFR (MDRD) Af Amer 43 L Est GFR (MDRD) Non-Af 36 L BUN/Creatinine Ratio 12.9 Glucose 600 H* Hemoglobin A1c Calcium 9.9 Magnesium Total Bilirubin Direct Bilirubin AST ALT Alkaline Phosphatase Troponin I 0.018 Total Protein Albumin Globulin Urine Color Yellow Urine Clarity Sl. Cloudy Urine pH 6.5 Ur Specific [place] 1.010 Urine Protein Negative Urine Glucose (UA) 1000 H Urine Ketones 15 H Urine Occult Blood 10 H Urine Nitrite Negative Urine Bilirubin Negative Urine Urobilinogen 1 H Ur Leukocyte Esterase Negative Urine RBC 0 SEEN Urine WBC 0-5 SEEN Ur Squamous Epith Cells 0-5 SEEN Urine Bacteria 0 SEEN Urine Mucus 0 SEEN 11/03/18 11/03/18 11/03/18 19:55 22:47 22:47 WBC RBC Hgb Hct MCV MCH MCHC RDW RDW Differential Plt Count MPV Immature Gran % (Auto) Neut % (Auto) Lymph % (Auto) Tate % (Auto) Eos % (Auto) Baso % (Auto) Absolute Neuts (auto) Absolute Lymphs (auto) Total Counted Sodium 142 144 Potassium 3.3 L 3.5 Chloride 108 H 109 H Carbon Dioxide 26.0 30.0 Anion Gap 8 5 BUN 19 H 18 Creatinine 1.39 H 1.16 H Estim Creat Clear Calc 33.19 39.77 Est GFR (MDRD) Af Amer 49 L 61 Est GFR (MDRD) Non-Af 41 L 50 L BUN/Creatinine Ratio 13.7 15.5 Glucose 332 H 222 H Hemoglobin A1c Calcium 9.1 9.3 Magnesium Total Bilirubin Direct Bilirubin AST ALT Alkaline Phosphatase Troponin I 0.021 0.030 Total Protein Albumin Globulin Urine Color Urine Clarity Urine pH Ur Specific [place] Urine Protein Urine Glucose (UA) Urine Ketones Urine Occult Blood Urine Nitrite Urine Bilirubin Urine Urobilinogen Ur Leukocyte Esterase Urine RBC Urine WBC Ur Squamous Epith Cells Urine Bacteria Urine Mucus 11/04/18 11/04/18 11/04/18 06:30 06:30 06:30 WBC 18.6 H RBC 3.78 L Hgb 12.2 Hct 36.8 L MCV 97.4 MCH 32.3 H MCHC 33.2 RDW 14.5 RDW Differential 50.8 H Plt Count 135 L MPV 11.2 Immature Gran % (Auto) 0.300 Neut % (Auto) 81.2 H Lymph % (Auto) 12.3 L Tate % (Auto) 5.1 Eos % (Auto) 1.0 Baso % (Auto) 0.1 Absolute Neuts (auto) 15.1 H Absolute Lymphs (auto) 2.28 Total Counted Not Reportable Sodium 135 L Potassium 3.5 Chloride 102 Carbon Dioxide 23.0 Anion Gap 10 BUN 17 Creatinine 1.19 H Estim Creat Clear Calc 38.77 Est GFR (MDRD) Af Amer 59 L Est GFR (MDRD) Non-Af 49 L BUN/Creatinine Ratio 14.3 Glucose 384 H Hemoglobin A1c Calcium 8.8 Magnesium Total Bilirubin 1.00 Direct Bilirubin 0.27 AST 40 H ALT 21 Alkaline Phosphatase 199 H Troponin I Total Protein 6.2 L Albumin 2.7 L Globulin 3.5 Urine Color Urine Clarity Urine pH Ur Specific [place] Urine Protein Urine Glucose (UA) Urine Ketones Urine Occult Blood Urine Nitrite Urine Bilirubin Urine Urobilinogen Ur Leukocyte Esterase Urine RBC Urine WBC Ur Squamous Epith Cells Urine Bacteria Urine Mucus POC Glucose 11/04/18 11/04/18 11/03/18 10:52 06:41 22:38 POC Glucose 445 H 388 H 182 H 11/03/18 11/03/18 11/03/18 21:50 20:50 19:54 POC Glucose 198 H 223 H 337 H 11/03/18 11/03/18 11/03/18 18:35 16:12 15:21 POC Glucose 368 H 450 H > 500 H* 11/03/18 14:10 POC Glucose > 500 H* Medical Necessity - Tobacco Use Smoking Status: Former smoker Tobacco Use: Cigarettes Assessment/Plan All Active Problems Hyperosmolar non-ketotic state in patient with type 2 diabetes mellitus (Acute) 1. Acute cholecystitis with GB hydrops - s/p lap harry POD#1, received cipro/flagyl per surgery. Pain mild. Advance diet per gen surg. Increased WBC likely reactive 2/2 surgery. Will trend. 2. HONK, DMt2 with obesity - added mealtime scheduled insulin. Continue long acting + SSI. 3. ADELINA - 2/2 #2, resolved 4. Hypothyroidism - synthroid DVT ppx: SCDs DC planning: adjust insulins as needed, monitor for post op complications. This patient was seen by Ranjit Perry PA-C under the supervision of Doctor Kenji. <Juanito Phillip - Last Filed: 11/04/18 14:00> - Physical Exam Vital Signs Temp Pulse Resp BP Pulse Ox 97.8 F 68 19 H 141/78 H 93 11/04/18 09:50 11/04/18 11:05 11/04/18 09:50 11/04/18 09:50 11/04/18 09:50 Oxygen Flow Rate (L/min) 2 Oxygen Delivery Method Room Air Weight: 92.7 kg Body Mass Index (BMI) 37.3 Finger Stick Blood Glucose 198 Intake and Output for Last 24 Hours 11/02/18 11/03/18 11/04/18 23:59 23:59 23:59 Intake Total 2990 / 2990 1230 / 1230 Balance 2990 / 2990 1230 / 1230 Laboratory Tests Past 24 Hrs 11/03/18 11/03/18 11/03/18 10:50 10:50 10:55 WBC RBC Hgb Hct MCV MCH MCHC RDW RDW Differential Plt Count MPV Immature Gran % (Auto) Neut % (Auto) Lymph % (Auto) Tate % (Auto) Eos % (Auto) Baso % (Auto) Absolute Neuts (auto) Absolute Lymphs (auto) Total Counted Sodium Potassium Chloride Carbon Dioxide Anion Gap BUN Creatinine Estim Creat Clear Calc Est GFR (MDRD) Af Amer Est GFR (MDRD) Non-Af BUN/Creatinine Ratio Glucose Hemoglobin A1c 9.0 H Calcium Magnesium 2.3 Total Bilirubin Cancelled 2.20 H Direct Bilirubin Cancelled 0.83 H AST Cancelled 27 ALT Cancelled 22 Alkaline Phosphatase Cancelled 304 H Troponin I Total Protein Cancelled 8.0 Albumin Cancelled 4.0 Globulin Cancelled 4.0 Urine Color Urine Clarity Urine pH Ur Specific [place] Urine Protein Urine Glucose (UA) Urine Ketones Urine Occult Blood Urine Nitrite Urine Bilirubin Urine Urobilinogen Ur Leukocyte Esterase Urine RBC Urine WBC Ur Squamous Epith Cells Urine Bacteria Urine Mucus 11/03/18 11/03/18 11/03/18 15:00 15:35 17:00 WBC RBC Hgb Hct MCV MCH MCHC RDW RDW Differential Plt Count MPV Immature Gran % (Auto) Neut % (Auto) Lymph % (Auto) Tate % (Auto) Eos % (Auto) Baso % (Auto) Absolute Neuts (auto) Absolute Lymphs (auto) Total Counted Sodium 139 Potassium 3.5 Chloride 102 Carbon Dioxide 25.0 Anion Gap 12 BUN 20 H Creatinine 1.55 H Estim Creat Clear Calc 29.76 Est GFR (MDRD) Af Amer 43 L Est GFR (MDRD) Non-Af 36 L BUN/Creatinine Ratio 12.9 Glucose 600 H* Hemoglobin A1c Calcium 9.9 Magnesium Total Bilirubin Direct Bilirubin AST ALT Alkaline Phosphatase Troponin I 0.018 Total Protein Albumin Globulin Urine Color Yellow Urine Clarity Sl. Cloudy Urine pH 6.5 Ur Specific [place] 1.010 Urine Protein Negative Urine Glucose (UA) 1000 H Urine Ketones 15 H Urine Occult Blood 10 H Urine Nitrite Negative Urine Bilirubin Negative Urine Urobilinogen 1 H Ur Leukocyte Esterase Negative Urine RBC 0 SEEN Urine WBC 0-5 SEEN Ur Squamous Epith Cells 0-5 SEEN Urine Bacteria 0 SEEN Urine Mucus 0 SEEN 11/03/18 11/03/18 11/03/18 19:55 22:47 22:47 WBC RBC Hgb Hct MCV MCH MCHC RDW RDW Differential Plt Count MPV Immature Gran % (Auto) Neut % (Auto) Lymph % (Auto) Tate % (Auto) Eos % (Auto) Baso % (Auto) Absolute Neuts (auto) Absolute Lymphs (auto) Total Counted Sodium 142 144 Potassium 3.3 L 3.5 Chloride 108 H 109 H Carbon Dioxide 26.0 30.0 Anion Gap 8 5 BUN 19 H 18 Creatinine 1.39 H 1.16 H Estim Creat Clear Calc 33.19 39.77 Est GFR (MDRD) Af Amer 49 L 61 Est GFR (MDRD) Non-Af 41 L 50 L BUN/Creatinine Ratio 13.7 15.5 Glucose 332 H 222 H Hemoglobin A1c Calcium 9.1 9.3 Magnesium Total Bilirubin Direct Bilirubin AST ALT Alkaline Phosphatase Troponin I 0.021 0.030 Total Protein Albumin Globulin Urine Color Urine Clarity Urine pH Ur Specific [place] Urine Protein Urine Glucose (UA) Urine Ketones Urine Occult Blood Urine Nitrite Urine Bilirubin Urine Urobilinogen Ur Leukocyte Esterase Urine RBC Urine WBC Ur Squamous Epith Cells Urine Bacteria Urine Mucus 11/04/18 11/04/18 11/04/18 06:30 06:30 06:30 WBC 18.6 H RBC 3.78 L Hgb 12.2 Hct 36.8 L MCV 97.4 MCH 32.3 H MCHC 33.2 RDW 14.5 RDW Differential 50.8 H Plt Count 135 L MPV 11.2 Immature Gran % (Auto) 0.300 Neut % (Auto) 81.2 H Lymph % (Auto) 12.3 L Tate % (Auto) 5.1 Eos % (Auto) 1.0 Baso % (Auto) 0.1 Absolute Neuts (auto) 15.1 H Absolute Lymphs (auto) 2.28 Total Counted Not Reportable Sodium 135 L Potassium 3.5 Chloride 102 Carbon Dioxide 23.0 Anion Gap 10 BUN 17 Creatinine 1.19 H Estim Creat Clear Calc 38.77 Est GFR (MDRD) Af Amer 59 L Est GFR (MDRD) Non-Af 49 L BUN/Creatinine Ratio 14.3 Glucose 384 H Hemoglobin A1c Calcium 8.8 Magnesium Total Bilirubin 1.00 Direct Bilirubin 0.27 AST 40 H ALT 21 Alkaline Phosphatase 199 H Troponin I Total Protein 6.2 L Albumin 2.7 L Globulin 3.5 Urine Color Urine Clarity Urine pH Ur Specific [place] Urine Protein Urine Glucose (UA) Urine Ketones Urine Occult Blood Urine Nitrite Urine Bilirubin Urine Urobilinogen Ur Leukocyte Esterase Urine RBC Urine WBC Ur Squamous Epith Cells Urine Bacteria Urine Mucus POC Glucose 11/04/18 11/04/18 11/03/18 10:52 06:41 22:38 POC Glucose 445 H 388 H 182 H 11/03/18 11/03/1818 21:50 20:50 19:54 POC Glucose 198 H 223 H 337 H 11/03/18 11/03/18 11/03/18 18:35 16:12 15:21 POC Glucose 368 H 450 H > 500 H* 11/03/18 14:10 POC Glucose > 500 H* Assessment/Plan This patient was seen in conjunction with Ranjit Perry PA-C . I have independently interviewed and examined the patient and reviewed pertinent historical, laboratory, and other data. Please refer to Ranjit Perry PA-C note for details of this patient's presentation, findings, and recommendations. I have reviewed Ranjit Perry PA-C note and concur with documented findings. In brief, patient is a 62-year-old lady with history of diabetes mellitus type 2 admitted with intractable nausea vomiting was also found to have a very distended gallbladder suggestive of possible gallbladder hydrops for which general surgery was consulted patient was seen by Dr. White who did perform laparoscopic cholecystectomy on 11/03/2018 Physical Examination: GENERAL: Appears ill looking HEENT: Atraumatic; moist oral mucosa EYES; Anicteric, Normal Conjunctiva NECK; supple, normal thyroid, no distended JVD. RESPIRATORY: Diminished to auscultation bilaterally, CARDIOVASCULAR: Regular S1 S2, no audible murmurs GI: soft, non-tender, normoactive bowel sounds, : No Renal angle tenderness; NEURO: Awake; no lateralizing signs. PSYCH; Normal affect Assessment: 1. Hyperosmolar ketotic state 2. Diabetes mellitus type 2 uncontrolled presented with hyperosmolar nonketotic state 3. Acute kidney injury secondary to above on IV fluids with monitoring of electrolyte 4. Acute cholecystitis with gallbladder hydrops. Status post laparoscopic cholecystectomy on 11/03/2018 5. Obesity with BMI of 37.4 Recommendations: 1. I have discussed the results of my overview and impressions with the patient 2. Options for management were reviewed Code Visit Inpatient E&M: 13354 [facility]
--- NOTE | 2018-11-04 14:06 | CASEMGMT ---
SAI MAGAÑA ASSESSMENT Face to Face with patient for initial transition planning/care coordination assessment. SAI MAGAÑA introduced self and role at [facility]. Pt voices understanding and consents to assessment at this time. Pt sitting up in recliner chair, A/O at this time and answers all questions appropriately. Care providers, pharmacy, and demographics verified/updated at this time. PCP: Candido Specialists: Dr Shaffer/pain mgmt Preferred Pharmacy: [facility]. [facility] Retail on day of d/c only. Insurance: [employer] [facility] Prescription Benefit: Yes Living Will/HPOA: Pt does not currently have LW/HCPOA and declines info at this time. Pt made aware that she can contact SW as an out-pt and make appt in the future if she decides she would like to talk with someone about this or would like to utilize [facility] social work for advanced directive completion. Given [employer] Rac card with information and contact number. Pt expresses understanding. LNOK: Living Arrangements: Lives with in mobile home. 4 steps to enter. Transportation: Pt states drives self but has not been driving much lately. drives. No transportation concerns at this time. DME: States has the following DME: Shower chair, raised toilet seat, walker. Pt states no need for further DME at this time. HHC/SNF: Pt states has never used HHC or been to a SNF. Denies need for HHC at this time, stating, my and I are getting along pretty well and he can help me if I need it. Pt wishes to return home and states has no concerns with going home at time of discharge. Pt states does not smoke or drink ETOH. Pt voices financial concerns and is interested in talking with SW. MOOKIE Vaca, made aware. Advised pt to ask for CM if any further questions/concerns/needs arise. Voices understanding. Plan: Home Jillian DELGADO RN, CM
[2018-11-04] MEDS: Insulin Lispro 100 UNIT/ML INSULN.PEN 24 UNIT SC (17:26)
[2018-11-04 17:35] LABS: Bedside Glucose 277 mg/dL (70-110)
--- NOTE | 2018-11-04 20:13 | NURSING ---
This RN walked patient in halls. Tolerated well.
[2018-11-04 21:40] LABS: Bedside Glucose 277 mg/dL (70-110)
[2018-11-04 22:20] LABS: Bedside Glucose 134 mg/dL (70-110)
[2018-11-05] VITALS (10 sets, daily range): BP systolic 152–181; BP diastolic 67–83; PULSE 66–105; RESP 14–18; TEMP 36.6–37; O2SAT 94–99
[2018-11-05] MEDS: proMETHazine 25 MG Tablet PO ×2 (00:05→20:52)
[2018-11-05 00:21] LABS: Bedside Glucose 96 mg/dL (70-110)
[2018-11-05] MEDS: Ondansetron 4 MG/2 ML Vial IV ×3 (04:48→18:05)
[2018-11-05 06:50] LABS: Bedside Glucose 156 mg/dL (70-110)
[2018-11-05 07:53] LABS: Absolute Neutrophil Count 8.6 X10^3/uL (2.0-7.7); Basophil# 0.01 X10^3/uL; Basophil% 0.1 % (0-1); Eosinophil# 0.15 X10^3/uL; Eosinophils% 1.4 % (0-5); Hematocrit 38.7 % (37-47); Hemoglobin 12.6 g/dl (12.0-15.0); Lymphocyte % 16.3 % (19-41); Mean Corp Hgb Conc 32.6 g/gl (32-36); Mean Corpuscular Hgb 32.5 pg (27.0-32.0); Mean Corpuscular Volume 99.7 fL (81-99); Mean Platelet Vol. 11.2 fl (6.2-12.0); Monocyte# 0.46 X10^3/uL; Monocyte% 4.2 % (0-10); Neutrophil # 8.58 X10^3/uL (2.7-7.7); Neutrophil % 77.8 % (47-70); Platelet Count 120 K/mm3 (150-450); RBC Distribution Width CV 14.2 % (11.6-14.6); Red Blood Count 3.88 M/mm3 (4.2-5.4)
[2018-11-05 08:01] LABS: POSITIVE COUNT NO; POSITIVE DIFFERENTIAL NO; POSITIVE MORPHOLOGY NO
[2018-11-05 08:16] LABS: Anion Gap 7 (5-15); BUN 10 mg/dL (7-18); BUN/Creat Ratio 11.1 RATIO (10-20); Chloride 108 mmol/L (98-107); EST Glomerular Filtration Rate 67 mL/min (>60); Est Glom Filt Rate - Afr Amer 81 mL/min (>60); Glucose 170 mg/dL (74-106); Potassium 3.1 mmol/L (3.5-5.1); Sodium Level 142 mmol/L (136-145)
[2018-11-05 08:17] LABS: AST(SGOT) 45 U/L (15-37); Alanine Aminotransfer ALT/SGPT 23 U/L (13-56); Alkaline Phosphatase 188 U/L (45-117); Bilirubin, Direct 0.36 mg/dL (0.00-0.30); Globulin 3.4 g/dL (2.2-4.2); Protein, Total 6.4 g/dL (6.4-8.2)
[2018-11-05] MEDS: Insulin Lispro 100 UNIT/ML INSULN.PEN SC ×2 (09:03→11:13)
[2018-11-05] MEDS: Insulin Lispro 100 UNIT/ML INSULN.PEN 24 UNIT SC ×2 (09:04→11:13)
--- NOTE | 2018-11-05 09:09 | PN.SURG_ITS ---
Patient Problems: Active and Suspected Problems Hyperosmolar non-ketotic state in patient with type 2 diabetes mellitus (Acute) Subjective: Patient evaluated resting comfortably in bed. She denies abdominal pain/discomfort. She continues to note nausea. She denies vomiting. She is continuing on clear liquids. - Physical Exam General: Alert, Oriented x3, Cooperative Abdomen: Soft, Non Tender, Hypoactive Bowel Sounds, Distended, Obese, - - INcisions c/d/i. No erythema or infection noted. Vital Signs Temp Pulse Resp BP Pulse Ox 98.6 F 89 16 157/83 H 95 11/05/18 03:37 11/05/18 07:00 11/05/18 03:37 11/05/18 03:37 11/05/18 03:37 Oxygen Flow Rate (L/min) 2 Oxygen Delivery Method Room Air Weight: 204 lb 5.896 oz Body Mass Index (BMI) 37.3 Finger Stick Blood Glucose 198 Intake and Output for Last 24 Hours 11/03/18 11/04/18 11/05/18 23:59 23:59 23:59 Intake Total 2990 / 2990 2910 / 2910 800 / 800 Output Total 300 / 300 Balance 2990 / 2990 2610 / 2610 800 / 800 Laboratory Tests Past 24 Hrs 11/05/18 11/05/18 11/05/18 07:28 07:28 07:28 WBC 11.0 RBC 3.88 L Hgb 12.6 Hct 38.7 MCV 99.7 H MCH 32.5 H MCHC 32.6 RDW 14.2 RDW Differential 51.0 H Plt Count 120 L MPV 11.2 Immature Gran % (Auto) 0.200 Neut % (Auto) 77.8 H Lymph % (Auto) 16.[address] [place] % (Auto) 4.2 Eos % (Auto) 1.4 Baso % (Auto) 0.1 Absolute Neuts (auto) 8.6 H Absolute Lymphs (auto) 1.80 Total Counted Not Reportable Sodium 142 Potassium 3.1 L Chloride 108 H Carbon Dioxide 27.0 Anion Gap 7 BUN 10 Creatinine 0.90 Estim Creat Clear Calc 50.60 Est GFR (MDRD) Af Amer 81 Est GFR (MDRD) Non-Af 67 BUN/Creatinine Ratio 11.1 Glucose 170 H Calcium 9.0 Total Bilirubin 0.90 Direct Bilirubin 0.36 H AST 45 H ALT 23 Alkaline Phosphatase 188 H Total Protein 6.4 Albumin 3.0 L Globulin 3.4 POC Glucose 11/05/18 11/05/18 11/04/18 06:45 00:17 21:36 POC Glucose 156 H 96 134 H 11/04/18 11/04/18 11/04/18 18:30 17:25 10:52 POC Glucose 277 H 277 H 445 H Medical Necessity - Tobacco Use Smoking Status: Former smoker Tobacco Use: Cigarettes Assessment/Plan All Active Problems Hyperosmolar non-ketotic state in patient with type 2 diabetes mellitus (Acute) I am following this patient in conjunction with Dr. Shields Impression: S/p lap harry Will continue clear liquids We will continue to monitor this patient Hopeful discharge today, possible tomorrow. Code Visit Inpatient E&M: 46841 Subs Hosp L1 - POST-OP; NO CHARGE
--- NOTE | 2018-11-05 11:03 | NURSING ---
this RN walked pt around halls. pt walked large loop and small loop. pt denied pain or SOB with ambulation.
[2018-11-05 11:26] LABS: Bedside Glucose 162 mg/dL (70-110)
--- NOTE | 2018-11-05 12:29 | CASEMGMT ---
Social Work Received referral that pt had questions about finances. SW met with pt and in room. Pt states both pt and spouse are on disability and having difficulty with finances. SW inquired about Medicaid and pt states they have spoke to S and do not qualify for Medicaid at this time. SW provided information on [employer]. Pt spouse states they are aware of and have use this service previously. Pt does have prescription coverage although difficult to make copays. Pt concerned about mounting medical bills, SW inquired if pt would like to speak with pt financial services but pt denied. Pt and spouse deny other needs at this time. SW will remain available should further needs arise. CLAUDIA Decker
--- NOTE | 2018-11-05 15:06 | PCM.PROGNOTE ---
<Ranjit Perry - Last Filed: 11/05/18 15:06> Patient Problems: Active and Suspected Problems Hyperosmolar non-ketotic state in patient with type 2 diabetes mellitus (Acute) Subjective: Pain improved. Unfortunately she was having dry heaving with clears this AM. Later she tolerated the frozen liquid. She will attempt clears. No fever/ chills. No SOB/Cough. - Physical Exam General: Alert, Oriented x3, Cooperative HEENT: Atraumatic, PERRLA, EOMI, Normocephalic Neck: Supple, No JVD, Negative Carotid Bruits Lungs: Clear to auscultation, Normal air movement Cardiovascular: Regular rate, No murmurs Abdomen: Bowel Sounds Present, Soft, Non Tender Extremities: No edema, Capillary Refill Less than 3 Seconds Skin: No rashes, No breakdown Musculoskeletal: No Tenderness to Palpation of Joints or Extremities Neurological: Cranial nerves II-XII grossly intact Psych/Mental Status: Normal Affect, Appropriate, Alert and oriented to time, place, person, mood and affect Vital Signs Temp Pulse Resp BP Pulse Ox 98.5 F 105 H 14 166/78 H 99 11/05/18 09:15 11/05/18 11:00 11/05/18 09:15 11/05/18 09:15 11/05/18 09:15 Oxygen Flow Rate (L/min) 2 Oxygen Delivery Method Room Air Weight: 204 lb 5.896 oz Body Mass Index (BMI) 37.3 Finger Stick Blood Glucose 198 Intake and Output for Last 24 Hours 11/03/18 11/04/18 11/05/18 23:59 23:59 23:59 Intake Total 2990 / 2990 2910 / 2910 1300 / 1300 Output Total 300 / 300 Balance 2990 / 2990 2610 / 2610 1300 / 1300 Laboratory Tests Past 24 Hrs 11/05/18 11/05/18 11/05/18 07:28 07:28 07:28 WBC 11.0 RBC 3.88 L Hgb 12.6 Hct 38.7 MCV 99.7 H MCH 32.5 H MCHC 32.6 RDW 14.2 RDW Differential 51.0 H Plt Count 120 L MPV 11.2 Immature Gran % (Auto) 0.200 Neut % (Auto) 77.8 H Lymph % (Auto) 16.3 L [place] % (Auto) 4.2 Eos % (Auto) 1.4 Baso % (Auto) 0.1 Absolute Neuts (auto) 8.6 H Absolute Lymphs (auto) 1.80 Total Counted Not Reportable Sodium 142 Potassium 3.1 L Chloride 108 H Carbon Dioxide 27.0 Anion Gap 7 BUN 10 Creatinine 0.90 Estim Creat Clear Calc 50.60 Est GFR (MDRD) Af Amer 81 Est GFR (MDRD) Non-Af 67 BUN/Creatinine Ratio 11.1 Glucose 170 H Calcium 9.0 Total Bilirubin 0.90 Direct Bilirubin 0.36 H AST 45 H ALT 23 Alkaline Phosphatase 188 H Total Protein 6.4 Albumin 3.0 L Globulin 3.4 POC Glucose 11/05/18 11/05/18 11/05/18 11:11 06:45 00:17 POC Glucose 162 H 156 H 96 11/04/18 11/04/18 11/04/18 21:36 18:30 17:25 POC Glucose 134 H 277 H 277 H Medical Necessity - Tobacco Use Smoking Status: Former smoker Tobacco Use: Cigarettes Assessment/Plan All Active Problems Hyperosmolar non-ketotic state in patient with type 2 diabetes mellitus (Acute) 1. Acute cholecystitis with GB hydrops - s/p lap harry POD#1, received cipro/flagyl per surgery. Pain mild. Nausea with PO. Attempt to advance diet. Will try full liquid and reassess. 2. HONK, DMt2 with obesity - improved. continue mealtime scheduled insulin. Continue long acting + SSI. 3. ADELINA - 2/2 #2, resolved 4. Hypothyroidism - synthroid 5. Hypokalemia - replete. DVT ppx: SCDs DC planning: dc if tolerating diet advancement This patient was seen by Ranjit Perry PA-C under the supervision of Doctor Kenji. <Juanito Phillip - Last Filed: 11/05/18 15:35> - Physical Exam Vital Signs Temp Pulse Resp BP Pulse Ox 97.8 F 77 18 152/67 H 99 11/05/18 15:15 11/05/18 15:15 11/05/18 15:15 11/05/18 15:15 11/05/18 15:15 Oxygen Flow Rate (L/min) 2 Oxygen Delivery Method Room Air Weight: 92.7 kg Body Mass Index (BMI) 37.3 Finger Stick Blood Glucose 198 Intake and Output for Last 24 Hours 11/03/18 11/04/18 11/05/18 23:59 23:59 23:59 Intake Total 2990 / 2990 2910 / 2910 1300 / 1300 Output Total 300 / 300 Balance 2990 / 2990 2610 / 2610 1300 / 1300 Laboratory Tests Past 24 Hrs 11/05/18 11/05/18 11/05/18 07:28 07:28 07:28 WBC 11.0 RBC 3.88 L Hgb 12.6 Hct 38.7 MCV 99.7 H MCH 32.5 H MCHC 32.6 RDW 14.2 RDW Differential 51.0 H Plt Count 120 L MPV 11.2 Immature Gran % (Auto) 0.200 Neut % (Auto) 77.8 H Lymph % (Auto) 16.3 L [place] % (Auto) 4.2 Eos % (Auto) 1.4 Baso % (Auto) 0.1 Absolute Neuts (auto) 8.6 H Absolute Lymphs (auto) 1.80 Total Counted Not Reportable Sodium 142 Potassium 3.1 L Chloride 108 H Carbon Dioxide 27.0 Anion Gap 7 BUN 10 Creatinine 0.90 Estim Creat Clear Calc 50.60 Est GFR (MDRD) Af Amer 81 Est GFR (MDRD) Non-Af 67 BUN/Creatinine Ratio 11.1 Glucose 170 H Calcium 9.0 Total Bilirubin 0.90 Direct Bilirubin 0.36 H AST 45 H ALT 23 Alkaline Phosphatase 188 H Total Protein 6.4 Albumin 3.0 L Globulin 3.4 POC Glucose 11/05/18 11/05/18 11/05/18 15:04 11:11 06:45 POC Glucose 60 L 162 H 156 H 11/05/18 11/04/18 11/04/18 00:17 21:36 18:30 POC Glucose 96 134 H 277 H 11/04/18 17:25 POC Glucose 277 H Assessment/Plan This patient was seen in conjunction with Ranjit Perry PA-C . I have independently interviewed and examined the patient and reviewed pertinent historical, laboratory, and other data. Please refer to Ranjit Perry PA-C note for details of this patient's presentation, findings, and recommendations. I have reviewed Ranjit Perry PA-C note and concur with documented findings. In brief, patient is a 62-year-old lady with history of diabetes mellitus type 2 admitted with intractable nausea vomiting was also found to have a very distended gallbladder suggestive of possible gallbladder hydrops for which general surgery was consulted patient was seen by Dr. Shields who did perform laparoscopic cholecystectomy on 11/03/2018 11/05/2018 on postoperative day 1 patient complains of intractable nausea plan to discharge patient home deferred\ Physical Examination: GENERAL: Appears ill looking HEENT: Atraumatic; moist oral mucosa EYES; Anicteric, Normal Conjunctiva NECK; supple, normal thyroid, no distended JVD. RESPIRATORY: Diminished to auscultation bilaterally, CARDIOVASCULAR: Regular S1 S2, no audible murmurs GI: soft, non-tender, normoactive bowel sounds, : No Renal angle tenderness; NEURO: Awake; no lateralizing signs. PSYCH; Normal affect Assessment: 1. Hyperosmolar nonketotic state 2. Diabetes mellitus type 2 uncontrolled presented with hyperosmolar nonketotic state 3. Acute kidney injury secondary to above on IV fluids with monitoring of electrolyte 4. Acute cholecystitis with gallbladder hydrops. Status post laparoscopic cholecystectomy on 11/03/2018 5. Obesity with BMI of 37.4 Recommendations: 1. I have discussed the results of my overview and impressions with the patient 2. Options for management were reviewed Code Visit Inpatient E&M: 26624 Subs Hosp L2
[2018-11-05 15:10] LABS: Bedside Glucose 60 mg/dL (70-110)
[2018-11-05 16:00] LABS: Bedside Glucose 108 mg/dL (70-110)
[2018-11-05] MEDS: oxyCODONE 5 MG Tablet PO ×2 (17:04→20:58)
[2018-11-05 21:06] LABS: Bedside Glucose 147 mg/dL (70-110)
[2018-11-06] VITALS (11 sets, daily range): BP systolic 133–170; BP diastolic 44–78; PULSE 77–99; RESP 16–20; TEMP 36.5–36.9; O2SAT 93–98
[2018-11-06 07:10] LABS: Bedside Glucose 150 mg/dL (70-110)
--- NOTE | 2018-11-06 08:08 | PCM.PN.SRG ---
Patient Problems: Active and Suspected Problems Hyperosmolar non-ketotic state in patient with type 2 diabetes mellitus (Acute) Subjective: Patient evaluated resting comfortably in bed. She notes very little discomfort. She notes turning the corner around midnight last night and has not had any nausea, vomiting. She is tolerating clear liquids. She notes positive flatus. She denies BM. - Physical Exam General: Alert, Oriented x3, Cooperative Abdomen: Bowel Sounds Present, Soft, Non Tender, Obese, - - Incisions c/d/i. No erythema or infection noted. Vital Signs Temp Pulse Resp BP Pulse Ox 98.0 F 79 18 160/69 H 93 11/06/18 06:57 11/06/18 06:57 11/06/18 06:57 11/06/18 06:57 11/06/18 06:57 Oxygen Flow Rate (L/min) 2 Oxygen Delivery Method Room Air Weight: 204 lb 5.896 oz Body Mass Index (BMI) 37.3 Finger Stick Blood Glucose 198 Intake and Output for Last 24 Hours 11/04/18 11/05/18 11/06/18 23:59 23:59 23:59 Intake Total 2910 / 2910 1800 / 1800 Output Total 300 / 300 Balance 2610 / 2610 1800 / 1800 Laboratory Tests Past 24 Hrs 11/05/18 11/05/18 11/06/18 07:28 07:28 06:40 Sodium 142 Pending Potassium 3.1 L Pending Chloride 108 H Pending Carbon Dioxide 27.0 Pending Anion Gap 7 Pending BUN 10 Pending Creatinine 0.90 Pending Estim Creat Clear Calc 50.60 Est GFR (MDRD) Af Amer 81 Pending Est GFR (MDRD) Non-Af 67 Pending BUN/Creatinine Ratio 11.1 Pending Glucose 170 H Pending Calcium 9.0 Pending Total Bilirubin 0.90 Direct Bilirubin 0.36 H AST 45 H ALT 23 Alkaline Phosphatase 188 H Total Protein 6.4 Albumin 3.0 L Globulin 3.4 POC Glucose 11/06/18 11/05/18 11/05/18 07:01 20:55 15:54 POC Glucose 150 H 147 H 108 11/05/18 11/05/18 15:04 11:11 POC Glucose 60 L 162 H Medical Necessity - Tobacco Use Smoking Status: Former smoker Tobacco Use: Cigarettes Assessment/Plan All Active Problems Hyperosmolar non-ketotic state in patient with type 2 diabetes mellitus (Acute) I am following this patient in conjunction with Dr. Shields Impression: S/p lap harry Will continue full liquids We will continue to monitor this patient Hopeful discharge today. Code Visit Inpatient E&M: 01110 Subs Hosp L1 - POST-OP/NO CHARGE
[2018-11-06 08:11] LABS: Anion Gap 8 (5-15); BUN 10 mg/dL (7-18); BUN/Creat Ratio 10.6 RATIO (10-20); Calcium,Total 9.2 mg/dL (8.5-10.1); Chloride 112 mmol/L (98-107); Creatinine, Serum 0.95 mg/dL (0.55-1.02); EST Glomerular Filtration Rate 64 mL/min (>60); Est Glom Filt Rate - Afr Amer 77 mL/min (>60); Estimated Creatinine Clearance 47.94 ml/min; Glucose 117 mg/dL (74-106); Potassium 3.6 mmol/L (3.5-5.1); Sodium Level 144 mmol/L (136-145)
[2018-11-06] MEDS: Ondansetron 4 MG/2 ML Vial IV ×2 (08:18→17:14)
--- NOTE | 2018-11-06 08:20 | DCINST_ITS ---
Discharge Diet: Light diet - advance as tolerated Discharge Activity: Return to Normal Activity, May Not Drive - for 2-3 days or while taking narcotic pain medicataions., - - Do not drive, work heavy equipment or sign legal documents for 24 hours. May shower in (days): 1 - with the bandage in place. Additional Activity Instructions:: Pain medication may cause nausea. You should typically eat light foods as you take your pain medications. Pain medication may also cause constipation. If this is a problem for you, please discuss with your doctor. Call your doctor if your incision/area has: Continuous Slow Oozing, Sudden Increased Bleeding, Increased Pain/ Swelling, Increased Redness, Foul Smelling Discharge, Fever of 101 or Higher Call your doctor if you observe: Fever of 101 or Higher Suture Line Care: Avoid Pulling/Pushing, Avoid Pinching/Bending Additional Dressing/Incision Instructions:: Leave operative bandaids on for 2 days. When you remove dressing, leave Steri-Strips on until your follow-up appointment, or until the Steri-Strips fall off on their own. Allergies/Adverse Reactions: Allergies amoxicillin [From Augmentin] Adverse Reaction (Verified 11/03/18 09:54) Vomiting clavulanic acid [From Augmentin] Adverse Reaction (Verified 11/03/18 09:54) Vomiting Medications to take at Discharge Insulin Aspart [Novolog Flexpen] 24 units SC TIDCM 01/01/17 ALPRAZolam [Xanax] 0.25 mg PO Q6H PRN PRN 11/03/18 Albuterol Inhaler [Ventolin Hfa] 1 puff INHALATION Q4H PRN 11/03/18 Furosemide [Lasix] 40 mg PO DAILY PRN 11/03/18 Insulin Degludec [Tresiba Flextouch U-200] 60 units SC BID 11/03/18 Levothyroxine [Synthroid] 100 mcg PO DAILY 11/03/18 [place] Carbonate [Eskalith Cr] 450 mg PO BID 11/03/18 Simvastatin [Zocor] 40 mg PO QHS 11/03/18 Tizanidine HCl [Zanaflex] 4 mg PO TID PRN 11/03/18 buPROPion XL [Wellbutrin Xl] 300 mg PO DAILY 11/03/18 proMETHazine tablet [Phenergan tablet] 25 mg PO Q6H PRN PRN 11/03/18 Oxycodone [Oxyir] 5 mg PO Q6H PRN PRN 7 Days #20 tablet 11/06/18 The following prescriptions were given: Oxycodone [Oxyir] 5 mg PO Q6H PRN PRN 7 Days #20 tablet PRN Reason: Severe Pain (6-08/27) Primary Care Physician: Jatinder Rey DO [Primary Care Provider] - Test Results: Test results from this visit will be discussed in further detail at your follow- up appointment, if applicable. Please Follow Up With: Asha Shields MD - [phone] When: 2 weeks Proposed Discharge Date: 11/06/18
[2018-11-06] MEDS: Insulin Lispro 100 UNIT/ML INSULN.PEN SC ×4 (08:29→22:05)
[2018-11-06] MEDS: proMETHazine 25 MG Tablet PO ×2 (08:36→22:27)
[2018-11-06] MEDS: oxyCODONE 5 MG Tablet PO ×4 (08:41→22:28)
[2018-11-06] MEDS: ALPRAZolam 0.25 MG Tablet PO ×3 (10:44→22:30)
[2018-11-06 11:41] LABS: Bedside Glucose 278 mg/dL (70-110)
[2018-11-06] MEDS: proMETHazine 25 MG/ML Syringe 12.5 MG IM (12:54)
[2018-11-06] MEDS: Lisinopril 5 MG Tablet PO ×2 (12:54→22:27)
--- NOTE | 2018-11-06 15:37 | PN_ITS ---
Patient Problems: Active and Suspected Problems Hyperosmolar non-ketotic state in patient with type 2 diabetes mellitus (Acute) Subjective: Patient seen still complains of persistent nausea added IM Phenergan to her antinausea regimen in addition to PPI Objective: Physical Examination: GENERAL: Appears ill looking HEENT: Atraumatic; moist oral mucosa EYES; Anicteric, Normal Conjunctiva NECK; supple, normal thyroid, no distended JVD. RESPIRATORY: Diminished to auscultation bilaterally, CARDIOVASCULAR: Regular S1 S2, no audible murmurs GI: soft, non-tender, normoactive bowel sounds, : No Renal angle tenderness; NEURO: Awake; no lateralizing signs. PSYCH; Normal affect Vitals/I&O's: Vital Signs Temp Pulse Resp BP Pulse Ox 98 F 83 16 170/78 H 95 11/06/18 10:41 11/06/18 15:06 11/06/18 10:41 11/06/18 10:41 11/06/18 10:41 Oxygen Flow Rate (L/min) 2 Oxygen Delivery Method Room Air Weight: 92.7 kg Body Mass Index (BMI) 37.3 Finger Stick Blood Glucose 198 Intake and Output for Last 24 Hours 11/04/18 11/05/18 11/06/18 23:59 23:59 23:59 Intake Total 2910 / 2910 1800 / 1800 300 / 300 Output Total 300 / 300 Balance 2610 / 2610 1800 / 1800 300 / 300 Laboratory Results 11/05/18 15:54: POC Glucose 108 11/05/18 20:55: POC Glucose 147 H 11/06/18 06:40: Sodium 144, Potassium 3.6, Chloride 112 H, Carbon Dioxide 24.0, Anion Gap 8, BUN 10, Creatinine 0.95, Estim Creat Clear Calc 47.94, Est GFR (MDRD) Af Amer 77, Est GFR (MDRD) Non-Af 64, BUN/Creatinine Ratio 10.6, Glucose 117 H, Calcium 9.2 11/06/18 07:01: POC Glucose 150 H 11/06/18 11:31: POC Glucose 278 H Current Medications Alprazolam (Xanax) 0.25 mg PO Q4H PRN PRN PRN Reason: ANXIETY Last Admin: 11/06/18 10:44 Dose: 0.25 mg Dextrose (D50w Syringe) 0 gm IV X1 PRN; Protocol PRN Reason: HYPOGLYCEMIA Hydralazine HCl (Apresoline Iv) 10 mg IV Q4H PRN PRN PRN Reason: for SBP > 150 Hydromorphone HCl (Dilaudid Inj) 0.5 - 1 mg IV Q2H PRN PRN PRN Reason: SEVERE PAIN (6-10/10) Pantoprazole Sodium 40 mg/ (Sodium Chloride) 110 mls @ 330 mls/hr IV Q12 [facility] Last Admin: 11/06/18 14:37 Dose: 330 mls/hr Insulin Glargine (Lantus (Bkc)) 30 units SC 1100,2200 [place] Insulin Human Lispro (Humalog Kwikpen (Bkc)) 0 unit SC ACHS [facility]; Protocol Last Admin: 11/06/18 11:35 Dose: 6 u Insulin Human Lispro (Humalog Kwikpen (Bkc)) 15 unit SC TIDAC [facility] Lisinopril (Zestril) 5 mg PO BID [facility] Last Admin: 11/06/18 12:54 Dose: 5 mg [place] Carbonate (Eskalith Cr) 450 mg PO BID [facility] Last Admin: 11/06/18 10:44 Dose: Not Given Magnesium Hydroxide (Milk Of Magnesia) 30 ml PO DAILY PRN PRN Reason: Constipation Ondansetron HCl (Zofran) 4 mg IV Q6H PRN PRN PRN Reason: NAUSEA/VOMITING Last Admin: 11/06/18 08:18 Dose: 4 mg Oxycodone HCl (Oxyir) 5 - 10 mg PO Q4H PRN PRN PRN Reason: SEVERE PAIN (6-10/10) Last Admin: 11/06/18 12:55 Dose: 10 mg Promethazine HCl (Phenergan Tablet) 25 mg PO Q6H PRN PRN PRN Reason: NAUSEA Last Admin: 11/06/18 08:36 Dose: 25 mg Promethazine HCl (Phenergan) 12.5 mg IM Q4H PRN PRN PRN Reason: NAUSEA/VOMITING Last Admin: 11/06/18 12:54 Dose: 12.5 mg Medical Necessity - Tobacco Use Smoking Status: Former smoker Tobacco Use: Cigarettes Assessment/Plan All Active Problems Hyperosmolar non-ketotic state in patient with type 2 diabetes mellitus (Acute) In brief, patient is a 62-year-old lady with history of diabetes mellitus type 2 admitted with intractable nausea vomiting was also found to have a very distended gallbladder suggestive of possible gallbladder hydrops for which ge neral surgery was consulted patient was seen by Dr. Shields who did perform laparoscopic cholecystectomy on 11/03/2018 1. Hyperosmolar nonketotic state: Patient was managed with aggressive IV fluid resuscitation as well as systemic insulin. Patient was transitioned to scheduled long-acting insulin as well as pre-meal insulin in addition to sliding scale coverage once her hyperosmolar state resolved 2. Diabetes mellitus type 2 uncontrolled presented with hyperosmolar nonketotic state 3. Acute kidney injury secondary to above on IV fluids with monitoring of electrolyte; kidney function back to baseline 4. Acute cholecystitis with gallbladder hydrops. Status post laparoscopic cholecystectomy on 11/03/2018 [place] postoperative. Complicated by persistent nausea treated symptomatically 5. Obesity with BMI of 37.4 6. DVT prophylaxis SCDs only avoided Lovenox due to precipitous drop in patient platelet count Active Medications Alprazolam (Xanax) 0.25 mg PO Q4H PRN PRN PRN Reason: ANXIETY Last Admin: 11/06/18 10:44 Dose: 0.25 mg Dextrose (D50w Syringe) 0 gm IV X1 PRN; Protocol PRN Reason: HYPOGLYCEMIA Hydralazine HCl (Apresoline Iv) 10 mg IV Q4H PRN PRN PRN Reason: for SBP > 150 Hydromorphone HCl (Dilaudid Inj) 0.5 - 1 mg IV Q2H PRN PRN PRN Reason: SEVERE PAIN (6-08/27) Pantoprazole Sodium 40 mg/ (Sodium Chloride) 110 mls @ 330 mls/hr IV Q12 [facility] Last Admin: 11/06/18 14:37 Dose: 330 mls/hr Insulin Glargine (Lantus (Bkc)) 30 units SC 1100,2200 [facility] Insulin Human Lispro (Humalog Kwikpen (Bkc)) 0 unit SC ACHS [facility]; Protocol Last Admin: 11/06/18 11:35 Dose: 6 u Insulin Human Lispro (Humalog Kwikpen (Bkc)) 15 unit SC TIDAC [facility] Lisinopril (Zestril) 5 mg PO BID [facility] Last Admin: 11/06/18 12:54 Dose: 5 mg [place] Carbonate (Eskalith Cr) 450 mg PO BID [facility] Last Admin: 11/06/18 10:44 Dose: Not Given Magnesium Hydroxide (Milk Of Magnesia) 30 ml PO DAILY PRN PRN Reason: Constipation Ondansetron HCl (Zofran) 4 mg IV Q6H PRN PRN PRN Reason: NAUSEA/VOMITING Last Admin: 11/06/18 08:18 Dose: 4 mg Oxycodone HCl (Oxyir) 5 - 10 mg PO Q4H PRN PRN PRN Reason: SEVERE PAIN (6-10/10) Last Admin: 11/06/18 12:55 Dose: 10 mg Promethazine HCl (Phenergan Tablet) 25 mg PO Q6H PRN PRN PRN Reason: NAUSEA Last Admin: 11/06/18 08:36 Dose: 25 mg Promethazine HCl (Phenergan) 12.5 mg IM Q4H PRN PRN PRN Reason: NAUSEA/VOMITING Last Admin: 11/06/18 12:54 Dose: 12.5 mg Code Visit Inpatient E&M: 99647 Subs Hosp L2
[2018-11-06 16:56] LABS: Bedside Glucose 226 mg/dL (70-110)
[2018-11-06 22:10] LABS: Bedside Glucose 262 mg/dL (70-110)
--- NOTE | 2018-11-07 01:11 | NURSING ---
Pt. walked in [place] 2 times tonight to help alleviate gas pain and stimulate bowels.
[2018-11-07 03:04] VITALS: PULSE 80
[2018-11-07 03:55] VITALS: BP 131/74; PULSE 79; RESP 20; TEMP 36.9; O2SAT 97
[2018-11-07 06:51] LABS: Bedside Glucose 378 mg/dL (70-110)
[2018-11-07 07:12] VITALS: PULSE 79
--- NOTE | 2018-11-07 08:46 | PCM.PN.SRG ---
Patient Problems: Active and Suspected Problems Hyperosmolar non-ketotic state in patient with type 2 diabetes mellitus (Acute) Subjective: Patient states she was able to tolerate Ensure as well as some Jell-O earlier this morning without any dry heaves. Patient only complains of some incisional pain at the right lateral incisions. - Physical Exam General: Alert, Oriented x3, Cooperative, No apparent distress Abdomen: Soft, Non-Distended, Tender - Near incisions, clean dry and intact, no peritoneal signs Vital Signs Temp Pulse Resp BP Pulse Ox 98.4 F 79 20 H 131/74 H 97 11/07/18 03:55 11/07/18 03:55 11/07/18 03:55 11/07/18 03:55 11/07/18 03:55 Oxygen Flow Rate (L/min) 2 Oxygen Delivery Method Room Air Weight: 204 lb 5.896 oz Body Mass Index (BMI) 37.3 Finger Stick Blood Glucose 198 Intake and Output for Last 24 Hours 11/05/18 11/06/18 11/07/18 23:59 23:59 23:59 Intake Total 1800 / 1800 2494 / 2494 280 / 280 Balance 1800 / 1800 2494 / 2494 280 / 280 POC Glucose 11/07/18 11/06/18 11/06/18 06:45 22:02 16:49 POC Glucose 378 H 262 H 226 H 11/06/18 11:31 POC Glucose 278 H Medical Necessity - Tobacco Use Smoking Status: Former smoker Tobacco Use: Cigarettes Assessment/Plan All Active Problems Hyperosmolar non-ketotic state in patient with type 2 diabetes mellitus (Acute) 1. Patient is on fulls if able to tolerate okay to DC per surgery standpoint, follow-up in 2 weeks in the office 2. Did give patient Dulcolax suppository 1 and then another if no results in 3 hours another one to see if that may help any with some the patient's nausea complaints. Asha Shields M.D. Pager: [phone] [facility] [address] [place] [address], [address] [place] [id number] Office: [phone]
[2018-11-07 09:14] VITALS: BP 116/63; PULSE 88; RESP 14; TEMP 36.6; O2SAT 96
[2018-11-07] MEDS: proMETHazine 25 MG Tablet PO (09:22)
[2018-11-07] MEDS: ALPRAZolam 0.25 MG Tablet PO (09:22)
[2018-11-07] MEDS: Bisacodyl 10 MG Suppository RECTAL (09:22)
[2018-11-07] MEDS: Insulin Lispro 100 UNIT/ML INSULN.PEN SC ×2 (09:23→12:18)
[2018-11-07] MEDS: Insulin Lispro 100 UNIT/ML INSULN.PEN 15 UNIT SC (09:24)
[2018-11-07] MEDS: Lisinopril 5 MG Tablet PO (09:24)
[2018-11-07 10:55] VITALS: PULSE 97
--- NOTE | 2018-11-07 11:31 | PCM.DC ---
- Discharge Diagnoses Current Active Problems: Current Active and Chronic Problems Hyperosmolar non-ketotic state in patient with type 2 diabetes mellitus (Acute) DM2 (diabetes mellitus, type 2) (Chronic) BMI 37.0-37.9, adult (Chronic) Hydrops of gallbladder (Chronic) You will use the following diet at home:: Calorie/Carbohydrate Controlled (specify 1200, 1400, etc) - 1800 Your food should be the consistency of: Regular Discharge Activity: Return to Normal Activity, May Not Drive - for 2-3 days or while taking narcotic pain medicataions., - - Do not drive, work heavy equipment or sign legal documents for 24 hours. May shower in (days): 1 - with the bandage in place. Additional Activity Instructions:: Pain medication may cause nausea. You should typically eat light foods as you take your pain medications. Pain medication may also cause constipation. If this is a problem for you, please discuss with your doctor. Call your doctor if your incision/area has: Continuous Slow Oozing, Sudden Increased Bleeding, Increased Pain/ Swelling, Increased Redness, Foul Smelling Discharge, Fever of 101 or Higher Call your doctor if you observe: Fever of 101 or Higher Suture Line Care: Avoid Pulling/Pushing, Avoid Pinching/Bending Additional Dressing/Incision Instructions:: Leave operative bandaids on for 2 days. When you remove dressing, leave Steri-Strips on until your follow-up appointment, or until the Steri-Strips fall off on their own. Allergies/Adverse Reactions: Allergies amoxicillin [From Augmentin] Adverse Reaction (Verified 11/03/18 09:54) Vomiting clavulanic acid [From Augmentin] Adverse Reaction (Verified 11/03/18 09:54) Vomiting Medications to take at Discharge Insulin Aspart [Novolog Flexpen] 24 units SC TIDCM 01/01/17 ALPRAZolam [Xanax] 0.25 mg PO Q6H PRN PRN 11/03/18 Albuterol Inhaler [Ventolin Hfa] 1 puff INHALATION Q4H PRN 11/03/18 Furosemide [Lasix] 40 mg PO DAILY PRN 11/03/18 Insulin Degludec [Tresiba Flextouch U-200] 60 units SC BID 11/03/18 Levothyroxine [Synthroid] 100 mcg PO DAILY 11/03/18 [place] Carbonate [Eskalith Cr] 450 mg PO BID 11/03/18 Simvastatin [Zocor] 40 mg PO QHS 11/03/18 Tizanidine HCl [Zanaflex] 4 mg PO TID PRN 11/03/18 buPROPion XL [Wellbutrin Xl] 300 mg PO DAILY 11/03/18 proMETHazine tablet [Phenergan tablet] 25 mg PO Q6H PRN PRN 11/03/18 Oxycodone [Oxyir] 5 mg PO Q6H PRN PRN 7 Days #20 tablet 11/06/18 Lisinopril [Zestril] 5 mg PO BID #120 tablet 11/07/18 Pantoprazole Sodium [Protonix] 40 mg PO DAILY #60 tablet 11/07/18 Sennosides/Docusate Sodium [Sennosides-Docusate Sodium Tab] 1 each PO DAILY #30 tablet 11/07/18 proMETHazine suppository [Phenergan] 25 mg RECTAL Q4H PRN PRN #30 suppos. 11/07/18 The following prescriptions were given: Lisinopril [Zestril] 5 mg PO BID #120 tablet Oxycodone [Oxyir] 5 mg PO Q6H PRN PRN 7 Days #20 tablet PRN Reason: Severe Pain (6-08/27) Pantoprazole Sodium [Protonix] 40 mg PO DAILY #60 tablet proMETHazine suppository [Phenergan] 25 mg RECTAL Q4H PRN PRN #30 suppos. PRN Reason: Nausea Sennosides/Docusate Sodium [Sennosides-Docusate Sodium Tab] 1 each PO DAILY #30 tablet Primary Care Physician: Jatinder Rey DO [Primary Care Provider] - Please follow up with your Primary Care Physician in: in 5-7 days Test Results: Test results from this visit will be discussed in further detail at your follow-up appointment, if applicable. Please Follow Up With: Asha Shields MD - [phone] When: 2 weeks Proposed Discharge Date: 11/07/18
--- NOTE | 2018-11-07 11:34 | PCM.DC.SUM ---
Discharge Date and Diagnosis - Problem List Patient Problems: Active and Suspected Problems Acute cholecystitis (Acute) Hyperosmolar non-ketotic state in patient with type 2 diabetes mellitus (Acute) Date of Admission: 11/03/18 Date of Discharge: 11/07/18 - Primary Discharge Diagnosis Active and Suspected Problems Acute cholecystitis (Acute) Hyperosmolar non-ketotic state in patient with type 2 diabetes mellitus (Acute) - Secondary Discharge Diagnosis Chronic Problems DM2 (diabetes mellitus, type 2) (Chronic) BMI 37.0-37.9, adult (Chronic) Hydrops of gallbladder (Chronic) Hospital Course and Treatment Imaging Results: Clinical Impression(s) from Imaging Studies Abdomen/Pelvis CT 11/03/18 11:24 IMPRESSION: 1. Very distended gallbladder suggesting possible gallbladder hydrops. 2. Mild splenomegaly. Electronically Signed: Zoey Dick MD at 12:32 EST , Service support , Cholangiogram 11/03/18 16:51 IMPRESSION: Fluoroscopic guided intraoperative cholangiogram Electronically Signed: Simone Foss MD at 23:56 EST , Service support , Summary of Care Provided: n brief, patient is a 62-year-old lady with history of diabetes mellitus type 2 admitted with intractable nausea vomiting was also found to have a very distended gallbladder suggestive of possible gallbladder hydrops for which general surgery was consulted patient was seen by Dr. Shields who did perform laparoscopic cholecystectomy on 11/03/2018 1. Hyperosmolar nonketotic state: Patient was managed with aggressive IV fluid resuscitation as well as systemic insulin. Patient was transitioned to scheduled long-acting insulin as well as pre-meal insulin in addition to sliding scale coverage once her hyperosmolar state resolved 2. Diabetes mellitus type 2 uncontrolled presented with hyperosmolar nonketotic state 3. Acute kidney injury secondary to above on IV fluids with monitoring of electrolyte; kidney function back to baseline 4. Acute cholecystitis with gallbladder hydrops. Status post laparoscopic cholecystectomy on 11/03/2018 hemicolon postoperative. Complicated by persistent nausea treated symptomatically 5. Obesity with BMI of 37.4 6. DVT prophylaxis SCDs only avoided Lovenox due to precipitous drop in patient platelet count Patient Problems: Active and Suspected Problems Acute cholecystitis (Acute) Hyperosmolar non-ketotic state in patient with type 2 diabetes mellitus (Acute) Objective: GENERAL: Appears ill looking HEENT: Atraumatic; moist oral mucosa EYES; Anicteric, Normal Conjunctiva NECK; supple, normal thyroid, no distended JVD. RESPIRATORY: Diminished to auscultation bilaterally, CARDIOVASCULAR: Regular S1 S2, no audible murmurs GI: soft, non-tender, normoactive bowel sounds, : No Renal angle tenderness; NEURO: Awake; no lateralizing signs. PSYCH; Normal affect - Physical Exam Vital Signs Temp Pulse Resp BP Pulse Ox 97.9 F 97 14 116/63 96 11/07/18 09:14 11/07/18 10:55 11/07/18 09:14 11/07/18 09:14 11/07/18 09:14 Oxygen Flow Rate (L/min) 2 Oxygen Delivery Method Room Air Weight: 92.7 kg Body Mass Index (BMI) 37.3 Finger Stick Blood Glucose 198 Intake and Output for Last 24 Hours 11/05/18 11/06/18 11/07/18 23:59 23:59 23:59 Intake Total 1800 / 1800 2494 / 2494 280 / 280 Balance 1800 / 1800 2494 / 2494 280 / 280 Laboratory Tests Past 24 Hrs 11/07/18 11:00 [place] 0.70 POC Glucose 11/07/18 11/06/18 11/06/18 06:45 22:02 16:49 POC Glucose 378 H 262 H 226 H 11/06/18 11:31 POC Glucose 278 H Discharge Diet: Light diet - advance as tolerated, 1800 Calorie Control Diet Discharge Activity: Return to Normal Activity, May Not Drive - for 2-3 days or while taking narcotic pain medicataions., - - Do not drive, work heavy equipment or sign legal documents for 24 hours. May shower in (days): 1 - with the bandage in place. Additional Activity Instructions:: Pain medication may cause nausea. You should typically eat light foods as you take your pain medications. Pain medication may also cause constipation. If this is a problem for you, please discuss with your doctor. Call your doctor if your incision/area has: Continuous Slow Oozing, Sudden Increased Bleeding, Increased Pain/ Swelling, Increased Redness, Foul Smelling Discharge, Fever of 101 or Higher Call your doctor if you observe: Fever of 101 or Higher Suture Line Care: Avoid Pulling/Pushing, Avoid Pinching/Bending Additional Dressing/Incision Instructions:: Leave operative bandaids on for 2 days. When you remove dressing, leave Steri-Strips on until your follow-up appointment, or until the Steri-Strips fall off on their own. Home Medications: Medications to take at Discharge Insulin Aspart [Novolog Flexpen] 24 units SC TIDCM 01/01/17 ALPRAZolam [Xanax] 0.25 mg PO Q6H PRN PRN 11/03/18 Albuterol Inhaler [Ventolin Hfa] 1 puff INHALATION Q4H PRN 11/03/18 Furosemide [Lasix] 40 mg PO DAILY PRN 11/03/18 Insulin Degludec [Tresiba Flextouch U-200] 60 units SC BID 11/03/18 Levothyroxine [Synthroid] 100 mcg PO DAILY 11/03/18 [place] Carbonate [Eskalith Cr] 450 mg PO BID 11/03/18 Simvastatin [Zocor] 40 mg PO QHS 11/03/18 Tizanidine HCl [Zanaflex] 4 mg PO TID PRN 11/03/18 buPROPion XL [Wellbutrin Xl] 300 mg PO DAILY 11/03/18 proMETHazine tablet [Phenergan tablet] 25 mg PO Q6H PRN PRN 11/03/18 Oxycodone [Oxyir] 5 mg PO Q6H PRN PRN 7 Days #20 tablet 11/06/18 Lisinopril [Zestril] 5 mg PO BID #120 tablet 11/07/18 Pantoprazole Sodium [Protonix] 40 mg PO DAILY #60 tablet 11/07/18 Sennosides/Docusate Sodium [Sennosides-Docusate Sodium Tab] 1 each PO DAILY #30 tablet 11/07/18 proMETHazine suppository [Phenergan] 25 mg RECTAL Q4H PRN PRN #30 suppos. 11/07/18 Following Prescrptions Were Given to Patient: Lisinopril [Zestril] 5 mg PO BID #120 tablet Oxycodone [Oxyir] 5 mg PO Q6H PRN PRN 7 Days #20 tablet PRN Reason: Severe Pain (6-08/27) Pantoprazole Sodium [Protonix] 40 mg PO DAILY #60 tablet proMETHazine suppository [Phenergan] 25 mg RECTAL Q4H PRN PRN #30 suppos. PRN Reason: Nausea Sennosides/Docusate Sodium [Sennosides-Docusate Sodium Tab] 1 each PO DAILY #30 tablet Primary Care Physician: Jatinder Rey DO [Primary Care Provider] - Please follow up with your Primary Care Physician in: in 5-7 days Please Follow Up With: Asha Shields MD - [phone] When: 2 weeks Disposition: Home Minutes spent on discharge:: 45 Patient Condition:: Stable Medical Necessity - Tobacco Use Smoking Status: Former smoker Tobacco Use: Cigarettes Meaningful Use Info Meaningful Use Diagnoses (Choose all that apply): None applicable Code Visit Inpatient E&M: 23783 Disch Hosp
[2018-11-07 13:11] LABS: Bedside Glucose 241 mg/dL (70-110)
== END 2018-11-07 14:44 | disposition home or self-care (01) | DRG 417 ==
LOC: ED 11:00 → PCU 13:39
PROVIDERS: Surgery; Admitting Provider Internal Medicine; Emergency Provider Emergency Medicine; Family Provider Family Medicine; PCP Family Medicine; Referring Provider Internal Medicine; Visit Provider Internal Medicine
PROC: 0FT44ZZ Resection of Gallbladder, Percutaneous Endoscopic Approach (ICD-10-PCS; CPT 47610; principal; 2018-11-03 16:15)
DX: K81.0 Acute cholecystitis (principal); E11.00 Type 2 diabetes mellitus with hyperosmolarity without nonketotic hyperglycemic-hyperosmolar coma (NKHHC); N17.9 Acute kidney failure, unspecified; K82.1 Hydrops of gallbladder; Z68.37 Body mass index [BMI] 37.0-37.9, adult; E66.9 Obesity, unspecified; Z79.4 Long term (current) use of insulin; Z87.891 Personal history of nicotine dependence; E03.9 Hypothyroidism, unspecified; E87.6 Hypokalemia
CPT/HCPCS: 36415; 74176; 74300; 76000; 80048; 80053; 80076; 80178; 81001; 82009; 82962; 83036; 83690; 83735; 84484; 85025; 88304; 93005; 97162; 97165; 97530; 97802; 99282; 99406; J7030; J7120; A4216; J0744; J2405

== ENCOUNTER → 2018-12-16 13:37 | Outpatient (CLI) | payer MEDICARE, SELFPAY ==
[2018-12-02 15:16] VITALS: BMI 37.3
--- NOTE | 2018-12-16 14:01 | RAD_ITS ---
STUDY: X-RAY - LUMBAR SPINE REASON FOR EXAM: Female, 63 years old. Chronic low back pain TECHNIQUE: 5 view(s) of the lumbar spine were obtained. COMPARISON: None FINDINGS: Grade 1 L4-5 anterolisthesis. Diffuse facet disease. Heights of vertebral bodies and disc spaces are maintained. Cholecystectomy clips. Arterial calcifications. RAD/L/S Spine Min 4 Views IMPRESSION: Grade 1 L4-5 anterolisthesis. Diffuse facet disease. No compression deformities are seen. Electronically Signed: Douglas Escobar MD at 10:29 EST Tel , Service support ,
[2018-12-16 14:04] LABS: Absolute Lymphocyte Count 2.62 X10^3/ul (0.83-4.51); Absolute Neutrophil Count 8.3 X10^3/uL (2.0-7.7); Basophil# 0.06 X10^3/uL; Basophil% 0.5 % (0-1); Eosinophil# 0.53 X10^3/uL; Eosinophils% 4.4 % (0-5); Hemoglobin 14.2 g/dl (12.0-15.0); Lymphocyte # 2.62 X10^3/ul (4.0); Lymphocyte % 21.5 % (19-41); Mean Corp Hgb Conc 32.3 g/gl (32-36); Mean Corpuscular Hgb 31.6 pg (27.0-32.0); Mean Corpuscular Volume 97.8 fL (81-99); Mean Platelet Vol. 10.6 fl (6.2-12.0); Monocyte# 0.58 X10^3/uL; Monocyte% 4.8 % (0-10); Neutrophil # 8.33 X10^3/uL (2.7-7.7); Neutrophil % 68.4 % (47-70); POSITIVE COUNT NO; POSITIVE DIFFERENTIAL NO; POSITIVE MORPHOLOGY NO; Platelet Count 183 K/mm3 (150-450); RBC Distribution Width SD 50.1 fl (35.1-43.9); White Blood Count 12.2 K/mm3 (4.4-11.0)
[2018-12-16 14:46] LABS: AST(SGOT) 56 U/L (15-37); Alanine Aminotransfer ALT/SGPT 44 U/L (13-56); Albumin, Serum 3.9 g/dL (3.2-5.0); Alkaline Phosphatase 241 U/L (45-117); Anion Gap 9 (5-15); BUN 18 mg/dL (7-18); BUN/Creat Ratio 16.4 RATIO (10-20); Calcium,Total 10.1 mg/dL (8.5-10.1); Chloride 105 mmol/L (98-107); EST Glomerular Filtration Rate 53 mL/min (>60); Est Glom Filt Rate - Afr Amer 65 mL/min (>60); Glucose 144 mg/dL (74-106); Protein, Total 7.9 g/dL (6.4-8.2); Sodium Level 139 mmol/L (136-145); Thyroid Stim Hormone (TSH) 2.75 uIU/mL (0.358-3.74)
== END ==
PROVIDERS: Family Provider Family Medicine; PCP Family Medicine; Referring Provider Nurse Practitioner Family; Visit Provider Nurse Practitioner Family
DX: M54.5 Low back pain (principal); G89.29 Other chronic pain; Z79.899 Other long term (current) drug therapy
CPT/HCPCS: 36415; 72110; 80053; 80178; 84443; 85025

== ENCOUNTER → 2019-03-03 | Outpatient (CLI) | payer MEDICARE, SELFPAY ==
[2018-12-02 15:16] VITALS: BMI 37.3
--- NOTE | 2019-03-03 08:29 | CT_ITS ---
STUDY: CT ABDOMEN WITH CONTRAST REASON FOR EXAM: Female, 63 years old. Right upper quadrant pain since cholecystectomy in October RADIATION DOSAGE (If Supplied By Facility): CTDIvol = ( 13.27 ) mGy, DLP = ( 741.82 ) mGycm TECHNIQUE: Transaxial images were obtained post I.V. administration of 100 IV Isovue 300, and without oral contrast. Sagittal and coronal images were reconstructed. Individualized dose optimization techniques were used for this CT. COMPARISON: November 03, 2018 FINDINGS: The visualized lung bases are unremarkable. The visualized portions of the heart are within normal limits. There is hepatomegaly with diffuse hepatic enlargement. There are surgical clips in the gallbladder fossa consistent with a prior cholecystectomy. There is moderate splenomegaly. There are 1.8 cm gastrohepatic lymph nodes. There is diffuse atrophy of the pancreas. Normal bilateral adrenal glands. Normal right kidney. Normal left kidney. Normal visualized stomach. Normal small intestine. Normal colon. There are surgical clips in the region of the appendix consistent with a prior appendectomy. There is diffuse atherosclerotic calcification of the abdominal aorta, without a demonstrated aneurysm. Normal inferior vena cava. Normal retroperitoneum. Normal abdominal wall. Facet arthropathy of the lower lumbar spine. There is no free fluid in the abdomen. CT/Abdomen WITH IV Contrast IMPRESSION: Prior cholecystectomy. No abscess. Hepatosplenomegaly. No biliary dilatation. Electronically Signed: Barney Adorno MD at 23:43 EDT , Service support ,
[2019-03-03 08:55] LABS: CREATININE FINGERSTICK 1.2 mg/dL (0.55-1.02)
== END | disposition home or self-care (01) ==
LOC: CT 08:21
PROVIDERS: Family Provider Family Medicine; PCP Family Medicine; Referring Provider Family Medicine; Visit Provider Family Medicine
DX: R10.11 Right upper quadrant pain (principal)
CPT/HCPCS: 74160; Q9967

== ENCOUNTER 2019-06-29 16:55 | Emergency (ER) | payer MEDICARE, SELFPAY ==
[2018-12-02 15:16] VITALS: BMI 37.3
[2019-06-29 16:57] VITALS: BP 142/71; PULSE 98; RESP 18; TEMP 36.9; O2SAT 95; BMI 37.6
--- NOTE | 2019-06-29 18:51 | ED.DCSUM_ITS ---
- ER Visit Summary Date of Service: 06/29/19 Chief Complaint: Abscess History of Present Illness: The patient is a 63 F who presents with abscess to her left chest area. Patient states she has a history of abscesses and states this feels similar. Patient denies any drainage. Patient admits to subjective fevers and chills. Patient describes the pain as throbbing. Patient states the pain is constant. Patient states the pain is worse with palpation and pressure to the area. Physical Examination: Vital signs are stable. Patient is afebrile. Patient is in no acute distress. Skin is warm and dry. There is an abscess over the left breast along the lateral aspect. There is some purulent drainage from the abscess. There is an opening to the area. There is surrounding erythema and warmth. Heart was regular rate and rhythm. Lungs are clear and equal bilaterally. Abdomen is soft and nontender. Cranial nerves II through XII are intact. There are no focal motor or sensory deficits noted. Emergency Department Course and Treatment: Since the abscess was already open and draining, an incision was not made. Moderate amount of purulent drainage was expressed. Patient tolerated it well. Given the surrounding cellulitis, jermaine bergman was given a prescription for clindamycin. Patient was instructed to follow-up with her primary care physician in 5 to 7 days. Patient was instructed to use warm compresses to the area. Patient understood and was agreeable with the plan. All questions were answered. Disposition: Discharge home Impression: Left breast abscess This note was generated with [employer] dictation software. It may contain incorrect words, spelling, and punctuation that were not noted in review of the chart prior to signing ED Disposition - Plan for ED Patient: Disposition: Home or Assisted Living Diagnosis: Left breast abscess Instructions: ABSCESS, Incision and Drainage Prescriptions: Clindamycin HCl [Cleocin] 300 mg PO Q6H #40 cap Prescription Printed Referrals: Jatinder Rey DO [Primary Care Provider] - 5-7 Days
[2019-06-29 19:20] VITALS: BP 140/79; PULSE 87; RESP 17; O2SAT 98
== END 2019-06-29 19:21 | disposition home or self-care (01) ==
LOC: ED 19:06
PROVIDERS: Emergency Provider Emergency Medicine; Family Provider Family Medicine; PCP Family Medicine
DX: N61.1 Abscess of the breast and nipple (principal); F31.9 Bipolar disorder, unspecified; Z79.899 Other long term (current) drug therapy; Z72.0 Tobacco use
CPT/HCPCS: 99282

== ENCOUNTER 2019-07-25 09:21 | Emergency (ER) | payer MEDICARE, SELFPAY ==
[2019-07-25 09:22] VITALS: BP 154/68; PULSE 82; RESP 17; TEMP 36.6; O2SAT 91; BMI 38.9
[2019-07-25] MEDS: 0.9% Normal Saline 1,000 ML 1000 ML IV (09:55)
[2019-07-25 10:19] LABS: Anion Gap 3 (5-15); BUN 12 mg/dL (7-18); BUN/Creat Ratio 16.3 RATIO (10-20); Calcium,Total 9.8 mg/dL (8.5-10.1); Chloride 111 mmol/L (98-107); Creatinine, Serum 0.74 mg/dL (0.55-1.02); EST Glomerular Filtration Rate 85 mL/min (>60); Est Glom Filt Rate - Afr Amer 103 mL/min (>60); Estimated Creatinine Clearance 61.54 ml/min; Glucose 55 mg/dL (74-106); Potassium 3.9 mmol/L (3.5-5.1); Sodium Level 142 mmol/L (136-145)
[2019-07-25 10:29] LABS: Absolute Lymphocyte Count 1.72 X10^3/uL (0.83-4.51); Basophil# 0.05 X10^3/uL; Basophil% 0.6 % (0-1); Eosinophil# 0.59 X10^3/uL; Eosinophils% 7.6 % (0-5); Hematocrit 42.2 % (37-47); Hemoglobin 13.9 g/dL (12.0-15.0); Lymphocyte # 1.72 X10^3/ul (4.0); Lymphocyte % 22.1 % (19-41); Mean Corp Hgb Conc 32.9 g/dL (32-36); Mean Corpuscular Hgb 30.5 pg (27.0-32.0); Mean Corpuscular Volume 92.7 fL (81-99); Mean Platelet Vol. 11.1 fl (6.2-12.0); Monocyte# 0.47 X10^3/uL; NRBC Flagged by Analyzer 0 % (0-5); Neutrophil # 4.95 X10^3/uL (2.7-7.7); Neutrophil % 63.4 % (47-70); Platelet Count 103 K/mm3 (150-450); RBC Distribution Width CV 13.7 % (11.6-14.6); RBC Distribution Width SD 46.8 fl (35.1-43.9); Red Blood Count 4.55 M/mm3 (4.2-5.4); White Blood Count 7.8 K/mm3 (4.4-11.0)
--- NOTE | 2019-07-25 10:52 | ED.VIS.GEN ---
History of Present Illness Chief Complaint: Diarrhea Narrative: Patient presented for evaluation secondary to diarrhea. Patient reports that couple weeks ago she was placed on antibiotics secondary to a skin infection. She reports that over the course of the last 10 to 12 days however she is been dealing with a diarrheal illness. She reports that she is having between 3 and 5 loose stools per day. She states that they are non-mucousy and nonbloody. She does endorse some mild nausea no vomiting. No fevers. Mild right-sided abdominal pain associated with this with no exacerbating relieving factors. Patient states that her who is a chemotherapy patient suffered from a bout of C. difficile in the spring that ended about in February. He was treated at home for this and not strictly in the hospital. Patient denies that she has any other associated symptoms. Review of systems otherwise negative. Past Medical History - Allergies and Home Meds Allergies/Adverse Reactions: Allergies amoxicillin [From Augmentin] Adverse Reaction (Verified 07/25/19 09:22) Vomiting clavulanic acid [From Augmentin] Adverse Reaction (Verified 07/25/19 09:22) Vomiting Primary Care Physician: Jatinder Rey DO [Primary Care Provider] - Past Medical History: - - Diabetes Surgical History: appendectomy, cholecystectomy, hysterectomy Smoking Status: Former smoker - Family History Maternal Family History: Reports: Unknown Paternal Family History: Reports: - - Father of alcoholism Review of Systems All systems negative except as indicated General: Denies: Fever Gastrointestinal: Reports: Abdominal pain, Nausea, Diarrhea. Denies: Vomiting Physical Exam Vital Signs/Narrative: Vital Signs Temp Pulse Resp BP Pulse Ox 07/25/19 09:22 97.9 F 82 17 154/68 H 91 Inital Vital Signs reviewed: Yes General: Well nourished, Well developed, No Acute Distress Head: Normocephalic, Atraumatic Eyes: Perrl, EOMI ENT: Moist mucous membranes, No rhinorrhea Neck: Supple, Nontender Cardiovascular: Regular rate, Regular rhythm, No murmurs Respiratory: No distress, CTA bilaterally, Chest nontender Abdomen: Soft, Nontender - Patient complains of right abdominal pain, but the tenderness is not reproducible on palpation, Nondistended, Normal bowel sounds Back: Nontender, Normal Inspection Extremities: Nontender, No edema Skin: Normal color, No rash Neurological: Alert, Oriented x3, Cranial nerves II-XII grossly intact, Normal Strength, Normal Sensation Psychological: Normal affect, Normal Mood Diagnostic/Tx/Re-eval - Medical Decision Making Presented with diarrheal illness. She does have some risk factors for C. difficile due to the potential for C. difficile being in the home still, as well as her recent antibiotic exposure. CBC and chemistry were grossly unremarkable, patient was mildly hypoglycemic but she is not having any abnormal mentation or changes from that. Patient was unable to provide a stool sample. As the patient does have risk factors, I will place the patient on a course of Flagyl. She will be written an outpatient order for a stool study to be called into her primary care physician. She is instructed to follow-up in the next week. All questions were answered and the patient was discharged. ED Disposition - Plan for ED Patient: Disposition: Home or Assisted Living Diagnosis: Diarrhea Instructions: DIARRHEA, Unk Cause (Adult) Report Pendg Prescriptions: metroNIDAZOLE [Flagyl] 500 mg PO Q8H #21 tablet Referrals: Jatinder Rey DO [Primary Care Provider] - 3-5 Days
[2019-07-25 11:05] VITALS: BP 135/74; PULSE 81; RESP 15; O2SAT 98
== END 2019-07-25 11:08 | disposition home or self-care (01) ==
PROVIDERS: Emergency Provider Emergency Medicine; Family Provider Family Medicine; PCP Family Medicine
DX: R19.7 Diarrhea, unspecified (principal); E11.9 Type 2 diabetes mellitus without complications; Z87.891 Personal history of nicotine dependence
CPT/HCPCS: 80048; 85025; 96360; 99283; J7030

== ENCOUNTER → 2019-07-26 | Outpatient (CLI) | payer MEDICARE, SELFPAY ==
[2019-07-25 09:22] VITALS: BMI 38.9
== END | disposition home or self-care (01) ==
LOC: LAB 13:08
PROVIDERS: Family Provider Family Medicine; PCP Family Medicine; Visit Provider Emergency Medicine
DX: K59.1 Functional diarrhea (principal)
CPT/HCPCS: 87493

== ENCOUNTER 2019-08-21 02:40 | Emergency (ER) | payer MEDICARE, SELFPAY ==
[2019-08-21 02:41] VITALS: BP 157/68; PULSE 90; RESP 18; TEMP 36.6; O2SAT 95; BMI 37.1
--- NOTE | 2019-08-21 02:51 | ED.VIS.GEN ---
History of Present Illness Chief Complaint: Back Narrative: Patient is a 63-year-old female who presents with lower back pain. She has a history of chronic back pain. She has previously seen pain management had epidural injections. Her pain has been worse over the last couple of weeks. Her primary care physician has been unavailable due to an illness. Tonight her pain was becoming intolerable. It is similar in character and location to her previous pain it just exacerbated. No fall trauma or injury. She denies fevers, abdominal pain, urinary tension, fecal incontinence, weakness. She has intermittent numbness in the left leg. Past Medical History - Allergies and Home Meds Allergies/Adverse Reactions: Allergies amoxicillin [From Augmentin] Adverse Reaction (Verified 08/21/19 02:40) Vomiting clavulanic acid [From Augmentin] Adverse Reaction (Verified 08/21/19 02:40) Vomiting Primary Care Physician: NOT,DEFINED [Primary Care Provider] - Past Medical History: - - Chronic back pain Surgical History: appendectomy, cholecystectomy, hysterectomy Smoking Status: Current every day smoker - Family History Maternal Family History: Reports: Unknown Paternal Family History: Reports: - - Father of alcoholism Review of Systems All systems negative except as indicated General: Denies: Fever Cardiovascular: Denies: Chest pain Respiratory: Denies: Dyspnea Gastrointestinal: Denies: Abdominal pain Musculoskeletal: Reports: Back pain Physical Exam Vital Signs/Narrative: Vital Signs Temp Pulse Resp BP Pulse Ox 08/21/19 02:41 97.8 F 90 18 157/68 H 95 Inital Vital Signs reviewed: Yes General: Well nourished Head: Normocephalic Eyes: EOMI ENT: Moist mucous membranes Cardiovascular: Regular rate Respiratory: No distress Abdomen: Soft, Nontender, Nondistended Back: Nontender Extremities: - - Brisk capillary refill Neurological: Normal Strength, Normal Sensation, - - 5 out of 5 strength with dorsiflexion, plantarflexion, extensor hallucis longus Diagnostic/Tx/Re-eval - Medical Decision Making Patient presents with an exacerbation of her chronic back pain. She was given Knickerbocker here as well as a prescription for a short course of the same. She does have a follow-up appointment with pain management on Saturday. She understands to return for new or worsening symptoms. At this time I do not feel any further emergent work-up is necessary. She does not have signs or symptoms to suggest acute surgical pathology such as cauda equina syndrome or epidural abscess. ED Disposition - Plan for ED Patient: Disposition: Home or Assisted Living Diagnosis: Acute exacerbation of chronic low back pain Instructions: BACK PAIN (Acute or Chronic) Prescriptions: Hydrocodone Bitart/Apap 5-325 [Knickerbocker 5MG-325MG] 1 tab PO Q6H PRN PRN 3 Days #12 tab PRN Reason: Pain Prescription Printed Referrals: NOT,DEFINED [Primary Care Provider] -
[2019-08-21] MEDS: HYDROcodone Bitartrate/Apap 5/325 Tablet PO (02:59)
[2019-08-21 03:12] VITALS: RESP 16
== END 2019-08-21 03:12 | disposition home or self-care (01) ==
LOC: ED 03:00
PROVIDERS: Emergency Provider Emergency Medicine; Family Provider Family Medicine; PCP Family Medicine
DX: M54.5 Low back pain (principal); G89.29 Other chronic pain; F17.200 Nicotine dependence, unspecified, uncomplicated
CPT/HCPCS: 99283

== ENCOUNTER → 2019-09-30 | Outpatient (CLI) | payer MEDICARE, SELFPAY ==
[2019-09-30 16:04] LABS: ALB/GLOB Ratio 0.8 RATIO (0.9-2.4); AST(SGOT) 52 U/L (15-37); Alanine Aminotransfer ALT/SGPT 46 U/L (13-56); Albumin, Serum 3.3 g/dL (3.2-5.0); Alkaline Phosphatase 204 U/L (45-117); Anion Gap 6 (5-15); BUN 19 mg/dL (7-18); BUN/Creat Ratio 20.9 RATIO (10-20); Calcium,Total 9.2 mg/dL (8.5-10.1); Chloride 110 mmol/L (98-107); Creatinine, Serum 0.91 mg/dL (0.55-1.02); EST Glomerular Filtration Rate 66 mL/min (>60); Est Glom Filt Rate - Afr Amer 80 mL/min (>60); Globulin 3.9 g/dL (2.2-4.2); Glucose 51 mg/dL (74-106); Protein, Total 7.2 g/dL (6.4-8.2); Sodium Level 143 mmol/L (136-145); Thyroid Stim Hormone (TSH) 2.36 uIU/mL (0.358-3.74)
== END | disposition home or self-care (01) ==
LOC: LAB 14:35
PROVIDERS: Family Provider Family Medicine; PCP Family Medicine; Referring Provider Registered Nurse; Visit Provider Registered Nurse
DX: F31.32 Bipolar disorder, current episode depressed, moderate (principal); Z79.899 Other long term (current) drug therapy
CPT/HCPCS: 36415; 80053; 80178; 84443

== ENCOUNTER 2019-12-29 19:45 | Emergency (ER) | payer MEDICARE, SELFPAY ==
[2019-12-29 19:46] VITALS: BP 149/73; PULSE 92; RESP 18; TEMP 36.4; O2SAT 96; BMI 40.5
--- NOTE | 2019-12-29 20:29 | CT_ITS ---
STUDY: CT ABDOMEN AND PELVIS WITHOUT CONTRAST REASON FOR EXAM: Female, 64 years old. RT SIDE ABDOMEN PAIN. Nausea since 11/11/19. Prior appendectomy,cholecystectomy and hysterectomy RADIATION DOSAGE (If Supplied By Facility): CTDIvol = ( 22.51 ) mGy, DLP = ( 1113.66 ) mGycm TECHNIQUE: Transaxial images were obtained from the dome of the diaphragm to the symphysis pubis without oral contrast, and without intravenous contrast. Sagittal and coronal images were reconstructed. Individualized dose optimization techniques were used for this CT. COMPARISON: March 03, 2019 FINDINGS: The visualized lung bases are unremarkable. The visualized portions of the heart are within normal limits. There is hepatomegaly with diffuse hepatic enlargement. There are surgical clips in the gallbladder fossa consistent with a prior cholecystectomy. There is moderate splenomegaly. Normal pancreas. Normal bilateral adrenal glands. Normal right kidney. Normal left kidney. Normal visualized stomach. Normal small intestine. There is abundant stool in the colon. There is infiltrative change adjacent to the ascending colon . There is wall thickening of the transverse colon, series 2 images 95/179 through 101/179. There is diverticulosis of the sigmoid region. There are surgical clips in the region of the appendix consistent with a prior appendectomy. There is diffuse atherosclerotic calcification of the abdominal aorta, without a demonstrated aneurysm. Normal inferior vena cava. Normal retroperitoneum. Normal urinary bladder. There is absence of the uterus consistent with a prior hysterectomy. There is no free fluid in the abdomen or pelvis. There is umbilical hernia containing fluid and fat. Degenerative change of the spine with grade 1 spondylolisthesis at L4-5. CT/Abdomen/Pelvis without Cont IMPRESSION: Wall thickening of the transverse colon with mass versus focal colitis. There is infiltrative change adjacent to the ascending colon. Colonoscopy recommended to exclude mass. Sigmoid diverticulosis. Hepatosplenomegaly. Electronically Signed: Barney Adorno MD at 21:17 EST , Service support ,
[2019-12-29] MEDS: Ketorolac 30 MG/ML Syringe 15 MG IV (20:35)
[2019-12-29 20:45] LABS: Mucous, Urine 0 SEEN /hpf (<or=2+); Red Blood Cells-Urine 0 SEEN /hpf (0-5)
--- NOTE | 2019-12-29 20:48 | RAD_ITS ---
STUDY: X-RAY CHEST REASON FOR EXAM: Female, 64 years old. COUGH TECHNIQUE: PA and lateral views of the chest. COMPARISON: None. FINDINGS: There is hyperinflation of the lungs consistent with chronic obstructive lung disease (COPD). There is no demonstrated pleural abnormality. Normal size heart. Normal mediastinum and kiesha. Normal visualized pulmonary arteries. Normal visualized aortic arch and descending thoracic aorta. There are diffuse degenerative changes of the visualized thoracic spine. Normal visualized ribs, clavicles, and shoulders. There is no demonstrated abnormality of the visualized soft tissue structures of the upper abdomen. RAD/Chest PA and Lateral IMPRESSION: Degenerative changes, as described above. No demonstrated acute cardiopulmonary process. Electronically Signed: Barney Adorno MD at 21:10 EST , Service support ,
[2019-12-29 20:49] LABS: Color, Urine Straw (Yellow); Glucose, Dipstick 250 mg/dl (Normal); Ketone-Dipstick Negative (Negative); Leukocyte Esterase-Dipstick Negative /ul (Negative); Nitrite-Dipstick Negative (Negative); Occult Blood-Urine Negative /ul (Negative); Protein-Dipstick Negative (Negative); Urine Bilirubin Dipstick Negative (Negative); Urine Clarity Sl. Cloudy (Clear); Urine Urobilinogen Normal (Normal); Urine pH 6.5 (5.0 - 8.0)
[2019-12-29 20:54] LABS: Hemoglobin 14.5 g/dL (12.0-15.0); Mean Corpuscular Volume 95.4 fL (81-99); Red Blood Count 4.61 M/mm3 (4.2-5.4); White Blood Count 9.3 K/mm3 (4.4-11.0)
[2019-12-29 20:55] LABS: Absolute Lymphocyte Count 1.87 X10^3/uL (0.83-4.51); Absolute Neutrophil Count 6.1 X10^3/uL (2.0-7.7); Basophil# 0.06 X10^3/uL; Basophil% 0.6 % (0-1); Eosinophil# 0.55 X10^3/uL; Eosinophils% 5.9 % (0-5); Lymphocyte # 1.87 X10^3/ul (4.0); Lymphocyte % 20.2 % (19-41); Mean Corpuscular Hgb 31.5 pg (27.0-32.0); Mean Platelet Vol. 11.2 fl (6.2-12.0); Monocyte# 0.66 X10^3/uL; Monocyte% 7.1 % (0-10); NRBC Flagged by Analyzer 0 % (0-5); Neutrophil # 6.08 X10^3/uL (2.7-7.7); Neutrophil % 65.8 % (47-70); Platelet Count 100 K/mm3 (150-450); RBC Distribution Width CV 13.9 % (11.6-14.6)
[2019-12-29 20:57] LABS: Squamous Epithelial Cells - UA 0-5 SEEN /hpf (5-10)
[2019-12-29 20:59] LABS: Bacteria RARE /hpf (None Seen); White Blood Cells 0-5 SEEN /hpf (0-5)
[2019-12-29 21:01] LABS: Yeast-Urine RARE /hpf (None Seen)
--- NOTE | 2019-12-29 21:03 | ED.VIS.GI ---
History of Present Illness Chief Complaint: Abd Pain Narrative: Patient presenting for evaluation secondary to abdominal pain. Patient reports that over the course of about the last month and a half 2 months she has been dealing with intermittent right sided right flank abdominal pain. She reports that it is a continuous type pain worse with movement and palpation, occasionally better with applying direct pressure to the area. Patient states that the pain seems to have been getting worse recently, so she presented for evaluation. Patient also states that the pain seems to get worse when she has coughing fits and she has been having increasing coughing recently. Patient denies any fevers nausea vomiting diarrhea. She denies any night sweats or unintended weight loss. She denies any urinary signs or symptoms. Patient is status post cholecystectomy, partial hysterectomy, and appendectomy. Past Medical History - Allergies and Home Meds Allergies/Adverse Reactions: Allergies amoxicillin [From Augmentin] Adverse Reaction (Verified 12/29/19 19:45) Vomiting clavulanic acid [From Augmentin] Adverse Reaction (Verified 12/29/19 19:45) Vomiting Primary Care Physician: Jatinder Rey DO [Primary Care Provider] - Past Medical History: - - DM Surgical History: appendectomy, cholecystectomy, hysterectomy Smoking Status: Light Smoker (<10/day) - Family History Maternal Family History: Reports: Unknown Paternal Family History: Reports: - - Father of alcoholism Review of Systems All systems negative except as indicated General: Denies: Chills, Fever, Sweats Eyes: Denies: Visual changes - bilaterally, Diplopia ENT: Denies: Rhinorrhea, Sore throat Cardiovascular: Denies: Chest pain, Palpitations Respiratory: Reports: Cough Gastrointestinal: Reports: Abdominal pain Genitourinary: Denies: Dysuria, Hematuria, Frequency Musculoskeletal: Denies: Back pain, Extremity Pain Skin: Denies: Rash, Wounds Neurological: Denies: Headache, Weakness, Numbness Physical Exam Vital Signs/Narrative: Vital Signs Temp Pulse Resp BP Pulse Ox 12/29/19 19:46 97.6 F L 92 18 149/73 H 96 Inital Vital Signs reviewed: Yes General: Well nourished, Well developed, Obese Head: Normocephalic, Atraumatic Eyes: Perrl, EOMI ENT: Moist mucous membranes, No rhinorrhea Neck: Supple, Nontender Cardiovascular: Regular rate, Regular rhythm, No murmurs Respiratory: No distress, Chest nontender, Wheezing - Lung sounds clear except for the right base where there is evidence of mild wheezes. Abdomen: Tender - Right upper quadrant no guarding or rebound. No palpable masses. Back: Nontender, Normal Inspection Extremities: Nontender, No edema Skin: Normal color, No rash Neurological: Alert, Oriented x3, Cranial nerves II-XII grossly intact, Normal Strength, Normal Sensation Psychological: Normal affect, Normal Mood Diagnostic/Tx/Re-eval - Medical Decision Making Patient presented secondary to abdominal pain. She had a relatively benign abdominal exam but did have some reproducibility of pain in the right upper quadrant. Laboratory work-up and CT imaging were obtained. CBC and chemistry showed mild acute kidney injury with a creatinine of 1.4 up from the patient's baseline she was given IV fluids for this. CT abdomen and pelvis demonstrates inflammatory changes of transverse colon, the could show some evidence of either colitis or potential intestinal mass. Patient reports to me that she has not had a colonoscopy in 25 years. I will treat this as if this potentially is infectious to start with and start the patient on a course of Cipro and Flagyl, but I stressed the importance of outpatient follow-up for colonoscopy with the patient as this could potentially be neoplasm. Patient voiced understanding of this and she was discharged. ED Disposition - Plan for ED Patient: Disposition: Home or Assisted Living Diagnosis: Colitis Instructions: ABDOMINAL PAIN, Unknown Cause, (Female) Prescriptions: Ciprofloxacin [Cipro] 500 mg PO BID #14 tab Prescription Printed metroNIDAZOLE [Flagyl] 500 mg PO Q8H #21 tab Prescription Printed Referrals: Asha Shields MD [STAFF PHYSICIAN] - 1-2 Weeks
[2019-12-29 21:23] LABS: ALB/GLOB Ratio 0.9 RATIO (0.9-2.4); AST(SGOT) 54 U/L (15-37); Alanine Aminotransfer ALT/SGPT 44 U/L (13-56); Albumin, Serum 3.4 g/dL (3.2-5.0); Alkaline Phosphatase 229 U/L (45-117); Anion Gap 2 (5-15); BUN 11 mg/dL (7-18); Chloride 107 mmol/L (98-107); Creatinine, Serum 0.92 mg/dL (0.55-1.02); EST Glomerular Filtration Rate 66 mL/min (>60); Est Glom Filt Rate - Afr Amer 79 mL/min (>60); Estimated Creatinine Clearance 48.86 ml/min; Globulin 3.9 g/dL (2.2-4.2); Glucose 181 mg/dL (74-106); Lipase 55 U/L (73-393); Potassium 4.5 mmol/L (3.5-5.1); Protein, Total 7.3 g/dL (6.4-8.2); Sodium Level 137 mmol/L (136-145)
[2019-12-29] MEDS: 0.9% Normal Saline 1,000 ML 999 ML IV (21:37)
[2019-12-29 21:45] VITALS: BP 142/76; PULSE 86; RESP 18; O2SAT 96
[2019-12-29] MEDS: metroNIDAZOLE 500 MG Tablet PO (22:02)
[2019-12-29] MEDS: Ciprofloxacin 500 MG Tablet PO (22:03)
== END 2019-12-29 22:59 | disposition home or self-care (01) ==
PROVIDERS: Emergency Provider Emergency Medicine; PCP Family Medicine
DX: K52.9 Noninfective gastroenteritis and colitis, unspecified (principal); R05 Cough; R06.2 Wheezing; E66.9 Obesity, unspecified; E11.9 Type 2 diabetes mellitus without complications; Z90.49 Acquired absence of other specified parts of digestive tract; Z79.4 Long term (current) use of insulin; Z79.899 Other long term (current) drug therapy; F17.200 Nicotine dependence, unspecified, uncomplicated
CPT/HCPCS: 71046; 74176; 80053; 81001; 83690; 85025; 96361; 96374; 99284; J7030; A4216

== ENCOUNTER 2020-02-05 06:44 | Emergency (ER) | payer MEDICARE, SELFPAY ==
[2020-02-05 06:46] VITALS: BP 148/77; PULSE 78; RESP 18; TEMP 36.8; O2SAT 95; BMI 38.0
[2020-02-05 06:49] VITALS: BP 148/77; PULSE 78; RESP 18; TEMP 36.8; O2SAT 95
--- NOTE | 2020-02-05 06:58 | CT_ITS ---
STUDY: CT ABDOMEN AND PELVIS WITH CONTRAST REASON FOR EXAM: Female, 64 years old. RUQ PAIN since October 2019. Hx of prior cholecystectomy and appendectomy. Diabetic-Insulin RADIATION DOSAGE (If Supplied By Facility): CTDIvol = ( 18.37 ) mGy, DLP = ( 1206.76 ) mGycm TECHNIQUE: Transaxial images were obtained from the dome of the diaphragm to the symphysis pubis with oral contrast. Oral and amp; IV Gastrografin and amp; OPTIRAY 320 100M was administered. Sagittal and coronal images were reconstructed. Individualized dose optimization techniques were used for this CT. COMPARISON: Comparison is made with prior examination dated December 29, 2019. FINDINGS: Stable mild increased markings at the left lung base suggestive of atelectasis and/or scarring. The visualized portions of the heart are within normal limits. There is hepatomegaly with diffuse hepatic enlargement. Diffuse fatty infiltration of the liver. There are surgical clips in the gallbladder fossa consistent with a prior cholecystectomy. There is moderate splenomegaly. There is diffuse atrophy of the pancreas. Normal bilateral adrenal glands. Normal right kidney. Normal left kidney. There is a small hiatal hernia. Normal small intestine. There is evidence of diffuse thickening of the wall of the right hemicolon with increased markings in the surrounding peritoneal fat suggestive of colitis. A moderate amount of fecal material is seen within the colon. There are multiple colonic diverticula consistent with diverticulosis. There are surgical clips in the region of the appendix consistent with a prior appendectomy. There is scattered atherosclerotic calcification of the abdominal aorta, without a demonstrated aneurysm. Normal inferior vena cava. There is borderline retroperitoneal lymphadenopathy with enlarged nodes no greater than 10mm in the short axis diameter. Normal urinary bladder. There is a small umbilical hernia containing fat. The sac of the hernia measures 3 cm in transverse dimension. Normal osseous structures. CT/Abdomen/Pelvis WITH Contrast IMPRESSION: Findings suggestive of a colitis involving the right hemicolon. Stable epidural splenomegaly with diffuse fatty infiltration of the liver. Electronically Signed: Baltazar Pappas, at 8:56 EDT , Service support ,
--- NOTE | 2020-02-05 07:09 | ED.DCSUM_ITS ---
History of Present Illness Chief Complaint: Abd Pain Informant: Patient Onset: Weeks Context: Gradual Onset Timing: Intermittent Current Severity: Moderate Maximum Severity: Moderate Narrative: The patient is a 64-year-old female that presents to the emergency department with abdominal pain. Patient states she is been battling this for about 6 weeks. She was actually seen here just over a month ago. At that point, she had CT imaging which demonstrated questionable colonic mass versus transverse colitis. She was placed on antibiotics and seemed to be doing better, but she is still had persistent pain. She states that she is changed her diet with little improvement. She denies any fevers or chills. She denies any weight loss. She denies any change in bowel habits. She states she is otherwise been in her normal state of health. Prior similar symptoms: Yes Recent Illness/Hospitalization: No Past Medical History - Allergies and Home Meds Allergies/Adverse Reactions: Allergies amoxicillin [From Augmentin] Adverse Reaction (Verified 02/05/20 06:50) Vomiting clavulanic acid [From Augmentin] Adverse Reaction (Verified 02/05/20 06:50) Vomiting Primary Care Physician: Jatinder Rey DO [COURTESY STAFF PHYSICIAN] - 3-5 Days Prior records reviewed: Yes Past Medical History: - - Hypertension Surgical History: appendectomy, cholecystectomy, hysterectomy Smoking Status: Current some day smoker - Family History Maternal Family History: Reports: Unknown Paternal Family History: Reports: - - Father of alcoholism Review of Systems General: Denies: Chills, Fever, Sweats Eyes: Denies: Visual changes - bilaterally, Diplopia ENT: Denies: Rhinorrhea, Sore throat Cardiovascular: Denies: Chest pain, Palpitations Respiratory: Denies: Dyspnea, Cough, Dyspnea on exertion Gastrointestinal: Reports: Abdominal pain, Nausea. Denies: Vomiting, Diarrhea, Melena, Hematochezia Genitourinary: Denies: Dysuria, Hematuria, Frequency Musculoskeletal: Denies: Back pain, Extremity Pain Skin: Denies: Rash, Wounds Neurological: Denies: Headache, Weakness, Numbness Physical Exam Vital Signs/Narrative: Vital Signs Temp Pulse Resp BP Pulse Ox 02/05/20 06:46 98.2 F 78 18 148/77 H 95 Inital Vital Signs reviewed: Yes General: Well nourished, Well developed, No Acute Distress Head: Normocephalic, Atraumatic Eyes: Perrl, EOMI ENT: Moist mucous membranes, No rhinorrhea Neck: Supple, Nontender Cardiovascular: Regular rate, Regular rhythm, No murmurs Respiratory: No distress, CTA bilaterally, Chest nontender Abdomen: Soft, Nondistended, Normal bowel sounds, Tender. Negative for: Guarding, Rebound tenderness Back: Nontender, Normal Inspection Extremities: Nontender, No edema Skin: Normal color, No rash Neurological: Alert, Oriented x3, Cranial nerves II-XII grossly intact, Normal Strength, Normal Sensation Psychological: Normal affect, Normal Mood Diagnostic/Tx/Re-eval Abnormal Lab Results 02/05/20 02/05/20 02/05/20 07:34 07:34 07:34 WBC 9.8 RBC 4.65 Hgb 14.4 Hct 44.8 MCV 96.3 MCH 31.0 MCHC 32.1 RDW Std Deviation 49.8 H RDW Coeff of Mazin 14.0 Plt Count 91 L MPV 11.5 Immature Gran % (Auto) 0.300 Neut % (Auto) 67.0 Lymph % (Auto) 18.4 L Worth % (Auto) 9.1 Eos % (Auto) 4.5 Baso % (Auto) 0.7 Absolute Neuts (auto) 6.6 Absolute Lymphs (auto) 1.81 Nucleated RBC % 0 Sodium 140 Potassium 3.7 Chloride 106 Carbon Dioxide 29.0 Anion Gap 5 BUN 9 Creatinine 0.80 Estim Creat Clear Calc 61.35 Est GFR (MDRD) Af Amer 92 Est GFR (MDRD) Non-Af 76 BUN/Creatinine Ratio 11.2 Glucose 102 Calcium 9.6 Total Bilirubin 2.00 H AST 56 H ALT 38 Alkaline Phosphatase 243 H Total Protein 7.4 Albumin 3.5 Globulin 3.9 Albumin/Globulin Ratio 0.9 Lipase 57 L Urine Color Yellow Urine Clarity Sl. Cloudy Urine pH 6.0 Ur Specific [place] 1.015 Urine Protein 15 H Urine Glucose (UA) 250 H Urine Ketones 5 H Urine Occult Blood 10 H Urine Nitrite Positive H Urine Bilirubin Negative Urine Urobilinogen 1 H Ur Leukocyte Esterase 100 H Urine RBC 0-5 SEEN Urine WBC 10-25 SEEN Ur Squamous Epith Cells 0-5 SEEN Urine Bacteria 0 SEEN Urine Mucus 0 SEEN - Medical Decision Making Clinical Impression(s) from Imaging Studies Abdomen/Pelvis CT 02/05/20 06:58 IMPRESSION: Findings suggestive of a colitis involving the right hemicolon. Stable epidural splenomegaly with diffuse fatty infiltration of the liver. Electronically Signed: Baltazar Pappas, at 8:56 EDT , Service support , The patient presents to the emergency department with right abdominal pain. She was treated for an infectious colitis. She states she was actually doing better until the past week. She has mild tenderness, but no rebound guarding or peritoneal signs. IV was established. Patient's pain was addressed. She was feeling improved. Labs are relatively unremarkable. Urine does show some evidence of infection and culture was added. The patient underwent CT which shows evidence of colitis of the right hemicolon. There is no perforation or abscess. My suspicion is that the patient would benefit from a longer course of antibiotics. She has no fever. Her pain is controlled. She wants to attempt outpatient therapy and I feel this is reasonable. She will be kept on Cipro and Flagyl for an extended course. She was counseled on concerning symptoms and reasons to return. She will be discharged home. Impression 1. Infectious colitis ED Disposition - Plan for ED Patient: Instructions: Diverticulitis Prescriptions: Ciprofloxacin [Cipro] 500 mg PO BID #28 tab Prescription Printed metroNIDAZOLE [Flagyl] 500 mg PO Q8H #30 tab Prescription Printed Hydrocodone Bitart/Apap 5-325 [[place] 5MG-325MG] 1 tab PO Q6H PRN PRN 3 Days #10 tab PRN Reason: Pain Prescription Printed Referrals: Jatinder Rey DO [COURTESY STAFF PHYSICIAN] - 3-5 Days
[2020-02-05 07:44] LABS: Bacteria 0 SEEN /hpf (None Seen); Mucous, Urine 0 SEEN /hpf (<or=2+)
[2020-02-05 07:47] LABS: Absolute Lymphocyte Count 1.81 X10^3/uL (0.83-4.51); Absolute Neutrophil Count 6.6 X10^3/uL (2.0-7.7); Basophil# 0.07 X10^3/uL; Basophil% 0.7 % (0-1); Eosinophil# 0.44 X10^3/uL; Eosinophils% 4.5 % (0-5); Hematocrit 44.8 % (37-47); Hemoglobin 14.4 g/dL (12.0-15.0); Lymphocyte # 1.81 X10^3/ul (4.0); Lymphocyte % 18.4 % (19-41); Mean Corp Hgb Conc 32.1 g/dL (32-36); Mean Corpuscular Volume 96.3 fL (81-99); Mean Platelet Vol. 11.5 fl (6.2-12.0); Monocyte# 0.89 X10^3/uL; Monocyte% 9.1 % (0-10); NRBC Flagged by Analyzer 0 % (0-5); Neutrophil # 6.59 X10^3/uL (2.7-7.7); POSITIVE COUNT YES; Platelet Count 91 K/mm3 (150-450); RBC Distribution Width SD 49.8 fl (35.1-43.9); Red Blood Count 4.65 M/mm3 (4.2-5.4); White Blood Count 9.8 K/mm3 (4.4-11.0)
[2020-02-05 07:52] LABS: Color, Urine Yellow (Yellow); Glucose, Dipstick 250 mg/dl (Normal); Ketone-Dipstick 5 mg/dl (Negative); Leukocyte Esterase-Dipstick 100 /ul (Negative); Nitrite-Dipstick Positive (Negative); Occult Blood-Urine 10 /ul (Negative); Protein-Dipstick 15 mg/dl (Negative); Specific Gravity, Urine 1.015 (1.002-1.030); Urine Bilirubin Dipstick Negative (Negative); Urine Clarity Sl. Cloudy (Clear); Urine Urobilinogen 1 mg/dl (Normal)
[2020-02-05] MEDS: 0.9% Normal Saline 1,000 ML 1000 ML IV (07:53)
[2020-02-05] MEDS: Morphine 4 MG/ML Syringe IV (07:53)
[2020-02-05] MEDS: Ondansetron 4 MG/2 ML Vial IV (07:53)
[2020-02-05 08:01] LABS: ALB/GLOB Ratio 0.9 RATIO (0.9-2.4); AST(SGOT) 56 U/L (15-37); Alanine Aminotransfer ALT/SGPT 38 U/L (13-56); Albumin, Serum 3.5 g/dL (3.2-5.0); Alkaline Phosphatase 243 U/L (45-117); Anion Gap 5 (5-15); BUN 9 mg/dL (7-18); BUN/Creat Ratio 11.2 RATIO (10-20); Calcium,Total 9.6 mg/dL (8.5-10.1); Chloride 106 mmol/L (98-107); EST Glomerular Filtration Rate 76 mL/min (>60); Est Glom Filt Rate - Afr Amer 92 mL/min (>60); Estimated Creatinine Clearance 61.35 ml/min; Globulin 3.9 g/dL (2.2-4.2); Glucose 102 mg/dL (74-106); Lipase 57 U/L (73-393); Potassium 3.7 mmol/L (3.5-5.1); Protein, Total 7.4 g/dL (6.4-8.2); Red Blood Cells-Urine 0-5 SEEN /hpf (0-5); Sodium Level 140 mmol/L (136-145); Squamous Epithelial Cells - UA 0-5 SEEN /hpf (5-10); White Blood Cells 10-25 SEEN /hpf (0-5)
[2020-02-05 08:14] VITALS: BP 138/55; PULSE 88; RESP 17; TEMP 36.5; O2SAT 96
[2020-02-05 09:32] VITALS: BP 138/55; PULSE 87; RESP 17; TEMP 36.6; O2SAT 97
== END 2020-02-05 09:35 | disposition home or self-care (01) ==
PROVIDERS: Emergency Provider Emergency Medicine; PCP Family Medicine
DX: A09 Infectious gastroenteritis and colitis, unspecified (principal); K76.0 Fatty (change of) liver, not elsewhere classified; I10 Essential (primary) hypertension; Z79.899 Other long term (current) drug therapy; F17.200 Nicotine dependence, unspecified, uncomplicated
CPT/HCPCS: 74177; 80053; 81001; 83690; 85025; 87077; 87086; 87088; 87186; 96361; 96374; 96375; 99283; J7030; Q9967; A4216; J2405

== ENCOUNTER → 2020-09-27 08:29 | Outpatient (CLI) | payer MEDICARE, SELFPAY ==
[2020-09-27 09:54] LABS: ALB/GLOB Ratio 0.8 RATIO (0.9-2.4); AST(SGOT) 36 U/L (15-37); Alanine Aminotransfer ALT/SGPT 36 U/L (13-56); Albumin, Serum 3.1 g/dL (3.2-5.0); Alkaline Phosphatase 260 U/L (45-117); Anion Gap 4 (5-15); BUN 15 mg/dL (7-18); BUN/Creat Ratio 15.9 RATIO (10-20); Chloride 104 mmol/L (98-107); Creatinine, Serum 0.94 mg/dL (0.55-1.02); EST Glomerular Filtration Rate 63 mL/min (>60); Est Glom Filt Rate - Afr Amer 77 mL/min (>60); Globulin 3.7 g/dL (2.2-4.2); Glucose 353 mg/dL (74-106); Potassium 3.7 mmol/L (3.5-5.1); Protein, Total 6.8 g/dL (6.4-8.2); Sodium Level 135 mmol/L (136-145); Thyroid Stim Hormone (TSH) 2.01 uIU/mL (0.358-3.74)
== END ==
PROVIDERS: PCP Family Medicine; Referring Provider Registered Nurse; Visit Provider Registered Nurse
DX: F31.32 Bipolar disorder, current episode depressed, moderate (principal); Z79.899 Other long term (current) drug therapy
CPT/HCPCS: 36415; 80053; 80178; 84443